=== PATIENT | female | born 1990 | race Caucasian/White ===

== ENCOUNTER 2021-09-27 02:03 | Emergency (ER) | payer OTHER, SELFPAY ==
[2021-09-27 02:05] VITALS: BP 117/76; PULSE 104; RESP 18; TEMP 36.8; O2SAT 97; BMI 29.2
--- NOTE | 2021-09-27 02:45 | ED_ITS ---
HPI - Psych General Chief Complaint: ETOH/Substance Use Stated Complaint: schizophrenia ; heroine withdrawal Time Seen by Provider: 09/27/21 02:41 Source: patient Mode of arrival: ambulatory Limitations: no limitations History of Present Illness HPI Narrative: Patient history of opiate abuse IVDA heroin and schizophrenia noncompliant to her medication has not taken her medication for last 1 and a half month hearing voices no suicidal ideation or homicidal feeling no depression Related Data Home Medications Medication Instructions Recorded Confirmed fluoxetine 40 mg capsule 1 cap PO DAILY 09/27/21 09/27/21 nicotine (polacrilex) 4 mg buccal 1 js PO Q2H PRN 09/27/21 09/27/21 lozenge quetiapine 25 mg tablet 1 tab PO TID 09/27/21 09/27/21 Previous Rx's Medication Instructions Recorded fluoxetine 40 mg capsule 40 mg PO DAILY #30 cap 09/27/21 quetiapine 25 mg tablet (Seroquel) 25 mg PO TID #90 tab 09/27/21 quetiapine 50 mg tablet (Seroquel) 50 mg PO BEDTIME #30 tab 09/27/21 Allergies Allergy/AdvReac Type Severity Reaction Status Date / Time morphine AdvReac Vomiting Verified 09/27/21 02:09 [facility] Social History Social History Use of substances other than those prescribed or required for medical reasons: Yes Substance Use Type: Heroin Advance Directives: No Patient : No Physical Exam Vital Signs: Vital Signs: Last Vital Signs Temp 98.2 F 09/27/21 02:05 Pulse 77 09/27/21 03:04 Resp 14 09/27/21 03:04 BP 109/63 09/27/21 03:04 Pulse Ox 99 09/27/21 03:04 BMI result Body Mass Index 29.2 Appearance: Alert. Oriented X3. No acute distress. Eyes: PERRLA, No Nystagmus ENT: Pharynx normal. Oral Mucosa moist Neck: Normal inspection. Neck supple. CVS: Normal heart rate and rhythm. Pulses normal. Respiratory: No respiratory distress. Equal air entry bilateral, no wheezing/rales/rhonchi Abdomen: Soft and nontender. Bowel sounds are present, no mass palpable, no CVA tenderness Skin: Skin warm and dry. Normal skin color. Normal skin turgor. Extremities: No lower extremity edema. No calf tenderness Psych: Mood stable denies any suicidal ideation auditory hallucination+ Neuro: Oriented X 3. No motor deficit. No sensory deficit.No cerebellar signs , cranial nerves II-XII intact MDM - Psych MDM Narrative Medical decision making narrative: Patient has schizophrenia and substance abuse does not want to go to detox will refill her prescription advised to follow up with detox as outpatient Medical Records Attestation: I reviewed the patient's medical records. Discharge Plan Discharge Clinical Impression: Heroin abuse, Schizophrenia Patient Disposition: Home, Self-Care Instructions: Schizophrenia (ED), Opioid Use Disorder (ED) Additional Instructions: Stop using the heroin Follow-up with detox Followup with your psychiatrist Take medication as prescribed for schizophrenia Prescriptions: New quetiapine [Seroquel] 25 mg tablet 25 mg PO TID Qty: 90 0RF quetiapine [Seroquel] 50 mg tablet 50 mg PO BEDTIME Qty: 30 0RF fluoxetine 40 mg capsule 40 mg PO DAILY Qty: 30 0RF No Action quetiapine 25 mg tablet 1 tab PO TID 0RF fluoxetine 40 mg capsule 1 cap PO DAILY 0RF nicotine (polacrilex) 4 mg lozenge 1 js PO Q2H PRN (Reason: Nicotine Cravings) 0RF
[2021-09-27] MEDS: QUEtiapine Fumarate 50 MG TABLET PO (02:57)
[2021-09-27] MEDS: LORazepam 1 MG TABLET 2 MG PO (02:57)
[2021-09-27 03:04] VITALS: BP 109/63; PULSE 77; RESP 14; O2SAT 99
--- NOTE | 2021-09-27 04:17 | PC.NURSE ---
pt is sleeping at this time. Awaiting care team.
[2021-09-27 05:48] VITALS: BP 111/50; PULSE 69; RESP 14; O2SAT 98
== END 2021-09-27 06:19 | disposition home or self-care (01) ==
PROVIDERS: Emergency Provider Internal Medicine
DX: F11.23 Opioid dependence with withdrawal (principal); F25.9 Schizoaffective disorder, unspecified; Z91.14 Patient's other noncompliance with medication regimen; Z79.899 Other long term (current) drug therapy
CPT/HCPCS: 99283; 99284

== ENCOUNTER 2021-09-28 02:59 | Emergency (ER) | payer OTHER, SELFPAY ==
[2021-09-28 03:07] VITALS: BP 109/67; PULSE 73; RESP 16; TEMP 36.8; O2SAT 97; BMI 26.5
[2021-09-28 03:41] LABS: Basophils Percent Auto 0.9 % (0-2); Eosinophils Absolute Auto 0.2 X10*3/uL (0.0-0.4); Eosinophils Percent Auto 5.2 % (0-4); Hematocrit 41.3 % (37.0-47.0); Hemoglobin 13.5 g/dl (12.0-16.0); Imm Gran Abs Auto 0.01 X10*3/uL (0.00-0.03); Imm Gran Pct Auto 0.2 % (0.0-0.4); Lymphocytes Absolute Auto 1.6 X10*3/uL (1.2-4.9); Lymphocytes Percent Auto 36.6 % (20-40); MANUAL DIFF FLAG NO; Mean Corpuscular HGB Conc 32.7 g/dl (31.0-35.0); Mean Corpuscular Hemoglobin 29.5 pg (27.0-33.0); Mean Corpuscular Volume 90.4 fL (80.0-98.0); Mean Platelet Volume 9.7 fL (9.4-12.3); Monocytes Absolute Auto 0.4 X10*3/uL (0.1-1.2); Monocytes Percent Auto 9.7 % (2-11); Neutrophils Percent Auto 47.4 % (45-73); Platelet Count 295 X10*3/uL (160-400); Red Blood Count 4.57 X10*6/uL (4.20-5.50); Red Cell Distribution Width 13.1 % (11.0-16.0); White Blood Count 4.2 X10*3/uL (4.8-10.8)
[2021-09-28 03:56] LABS: Ethanol < 10 mg/dL
[2021-09-28 03:59] LABS: Acetaminophen LAB < 1 mcg/mL (<30); Anion Gap 12 (12-20); Blood Urea Nitrogen 11 mg/dL (9-16); Calcium 9.3 mg/dL (8.4-10.2); Carbon Dioxide 27 mmol/L (22-29); Chloride 104 mmol/L (96-108); Creatinine Clr Calc Pharmacy 97.2; Estimated Glomerular Filt Rate > 60; Glucose Random 82 mg/dL (60-115); Potassium 4.3 mmol/L (3.3-5.1); Salicylate < 5.0 mg/dL (15-30); Sodium 139 mmol/L (135-145)
[2021-09-28 04:01] LABS: COVID-19 Test Negative (Negative)
--- NOTE | 2021-09-28 05:03 | ED_ITS ---
HPI - Psych General Chief Complaint: Psychiatric Symptoms Stated Complaint: Crisis Time Seen by Provider: 09/28/21 05:03 Source: patient Mode of arrival: ambulatory Limitations: no limitations History of Present Illness HPI Narrative: Patient history of schizophrenia off her medication for some time homeless coherent depressed complaining of homicidal thought but not towards any particular person after arrival she states she wanted to hurt herself but no suicidal ideation Related Data Home Medications Medication Instructions Recorded Confirmed fluoxetine 40 mg capsule 1 cap PO DAILY 09/28/21 09/28/21 quetiapine 25 mg tablet 1 tab PO TID 09/28/21 09/28/21 Allergies Allergy/AdvReac Type Severity Reaction Status Date / Time morphine AdvReac Vomiting Verified 09/27/21 02:09 Review of Systems Review of Systems: Yes all other systems are reviewed and are negative [facility] Social History Social History Substance Use Type: Heroin Advance Directives: No Patient : No Physical Exam Vital Signs: Vital Signs: Last Vital Signs Temp 98.2 F 09/28/21 03:07 Pulse 73 09/28/21 03:07 Resp 16 09/28/21 03:07 BP 109/67 09/28/21 03:07 Pulse Ox 97 09/28/21 03:07 BMI result Body Mass Index 26.5 Appearance: Alert. Oriented X3. No acute distress. Eyes: PERRLA, No Nystagmus ENT: Pharynx normal. Oral Mucosa moist Neck: Normal inspection. Neck supple. CVS: Normal heart rate and rhythm. Pulses normal. Respiratory: No respiratory distress. Equal air entry bilateral, no wheezing/rales/rhonchi Abdomen: Soft and nontender. Bowel sounds are present, Skin: Skin warm and dry. Normal skin color. Normal skin turgor. Extremities: No lower extremity edema. No calf tenderness Psych: Calm and cooperative fair judgment AH+ Neuro: Oriented X 3. No motor deficit. No sensory deficit.No cerebellar signs , cranial nerves II-XII intact MDM - Psych MDM Narrative Medical decision making narrative: Patient with schizophrenia will get crisis consult Lab Data Attestation: I reviewed the patient's lab results. Result diagrams: 09/28/21 03:36 09/28/21 03:36 Labs: Lab Results 09/28/21 09/28/21 09/28/21 Range/Units 03:36 03:36 03:36 WBC 4.2 L (4.8-10.8) X10*3/uL RBC 4.57 (4.20-5.50) X10*6/uL Hgb 13.5 (12.0-16.0) g/dl Hct 41.3 (37.0-47.0) % MCV 90.4 (80.0-98.0) fL MCH 29.5 (27.0-33.0) pg MCHC 32.7 (31.0-35.0) g/dl RDW 13.1 (11.0-16.0) % Plt Count 295 (160-400) X10*3/uL MPV 9.7 (9.4-12.3) fL Immature Gran % (Auto) 0.2 (0.0-0.4) % Neut % (Auto) 47.4 (45-73) % Lymph % (Auto) 36.6 (20-40) % [place] % (Auto) 9.7 (2-11) % Eos % (Auto) 5.2 H (0-4) % Baso % (Auto) 0.9 (0-2) % Lymph # (Auto) 1.6 (1.2-4.9) X10*3/uL [place] # (Auto) 0.4 (0.1-1.2) X10*3/uL Eos # (Auto) 0.2 (0.0-0.4) X10*3/uL Baso # (Auto) 0.0 (0.0-0.2) X10*3/uL Abs Immat Gran (auto) 0.01 (0.00-0.03) X10*3/uL Absolute Neuts (auto) 2.0 (2.0-8.3) x10*3/uL Absolute Nucleated RBC 0.000 (0.0-0.012) X10*3/uL Nucleated RBC % (auto) 0.0 (0.0-0.2) /100WBC Sodium 139 (135-145) mmol/L Potassium 4.3 (3.3-5.1) mmol/L Chloride 104 (96-108) mmol/L Carbon Dioxide 27 (22-29) mmol/L Anion Gap 12 (12-20) BUN 11 (9-16) mg/dL Creatinine 0.79 (0.5-1.4) mg/dL Estim Creat Clear Calc 97.2 Estimated GFR > 60 Random Glucose 82 (60-115) mg/dL Calcium 9.3 (8.4-10.2) mg/dL Salicylates < 5.0 L (15-30) mg/dL Acetaminophen < 1 (<30) mcg/mL Ethyl Alcohol < 10 mg/dL COVID-19 ([facility]) (Negative) COVID-19 Clin Com 09/28/21 Range/Units 03:39 WBC (4.8-10.8) X10*3/uL RBC (4.20-5.50) X10*6/uL Hgb (12.0-16.0) g/dl Hct (37.0-47.0) % MCV (80.0-98.0) fL MCH (27.0-33.0) pg MCHC (31.0-35.0) g/dl RDW (11.0-16.0) % Plt Count (160-400) X10*3/uL MPV (9.4-12.3) fL Immature Gran % (Auto) (0.0-0.4) % Neut % (Auto) (45-73) % Lymph % (Auto) (20-40) % [place] % (Auto) (2-11) % Eos % (Auto) (0-4) % Baso % (Auto) (0-2) % Lymph # (Auto) (1.2-4.9) X10*3/uL [place] # (Auto) (0.1-1.2) X10*3/uL Eos # (Auto) (0.0-0.4) X10*3/uL Baso # (Auto) (0.0-0.2) X10*3/uL Abs Immat Gran (auto) (0.00-0.03) X10*3/uL Absolute Neuts (auto) (2.0-8.3) x10*3/uL Absolute Nucleated RBC (0.0-0.012) X10*3/uL Nucleated RBC % (auto) (0.0-0.2) /100WBC Sodium (135-145) mmol/L Potassium (3.3-5.1) mmol/L Chloride (96-108) mmol/L Carbon Dioxide (22-29) mmol/L Anion Gap (12-20) BUN (9-16) mg/dL Creatinine (0.5-1.4) mg/dL Estim Creat Clear Calc Estimated GFR Random Glucose (60-115) mg/dL Calcium (8.4-10.2) mg/dL Salicylates (15-30) mg/dL Acetaminophen (<30) mcg/mL Ethyl Alcohol mg/dL COVID-19 ([facility]) Negative (Negative) COVID-19 Clin Com See Note Discharge Plan Discharge Clinical Impression: Schizophrenia Patient Disposition: Still a Patient Prescriptions: No Action quetiapine 25 mg tablet 1 tab PO TID 0RF fluoxetine 40 mg capsule 1 cap PO DAILY 0RF
--- NOTE | 2021-09-28 06:16 | PC.NURSE ---
Patient slept through the night, no distress observed/reported, behavior non concerning, [facility] referral completed/confirmed/pending ETA, med rec completed/MAR updated, VSS, will continue to monitor.
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
[2021-09-28 10:40] LABS: Appearance Urine HAZY; Color Urine DK YELLOW; Glucose Urine UA NEG (NEG); Leukocyte Esterase Urine TRACE (NEG); Nitrite Urine NEG (NEG); Specific Gravity - Urine <= 1.005 (1.005-1.025); Urine Blood 3+ (NEG); Urine Ketones NEG (NEG); Urine Protein 2+ MG/DL (NEG-TRACE)
[2021-09-28] MEDS: QUEtiapine Fumarate 25 MG TABLET PO ×3 (10:40→21:06)
[2021-09-28] MEDS: FLUoxetine HCl 20 MG CAPSULE 40 MG PO (10:40)
[2021-09-28 10:41] LABS: UPreg QC Valid YES
[2021-09-28 10:43] LABS: Urine Pregnancy NEGATIVE (NEGATIVE)
[2021-09-28 10:57] LABS: Squamous Epithelial Cell Urine 2+ /LPF
[2021-09-28 10:58] LABS: Amphetamine Screen Urine Not Detected (Not Detect); Barbiturates, Urine Not Detected (Not Detect); Benzodiazepines Screen Urine Not Detected (Not Detect); Cannabinoid Screen Urine POSITIVE (Not Detect); Cocaine Screen Urine POSITIVE (Not Detect); Fentanyl, urine POSITIVE (Not Detect); Opiate Screen Urine Not Detected (Not Detect); Phencyclidine Screen Urine Not Detected (Not Detect)
[2021-09-28 11:00] LABS: Bacteria Urine 1+ /LPF; Trichomonas Urine NOTED; WBC Urine 0-2 /HPF (0-4)
--- NOTE | 2021-09-28 15:28 | PC.NURSE ---
patient resting comfortably awaiting detox bed, took meds without difficulty
--- NOTE | 2021-09-28 15:42 | MHC.RECOVSUP ---
Recovery Support note: Patient is a 30 year old Russian speaking female who presented to [facility] due to vague SI. Patient was evaluated by CARE Team and it was determined that patient would benefit most from ATS. This machine sign writer met with patient to confirm interest in ATS. Both [facility] report female beds and patient is being considered by both facilities. This machine sign writer awaits follow up from these facilities.
[2021-09-28 17:07] VITALS: BP 99/52; PULSE 58; RESP 15; TEMP 36.9; O2SAT 98
--- NOTE | 2021-09-28 18:07 | MHC.RECOVSUP ---
Recovery Support note: Patient continues to deny HI and SI. Patient reports using half a bundle of heroin per day. Patient reports she is willing to go anywhere for treatment.
--- NOTE | 2021-09-28 19:19 | MHC.RECOVSUP ---
Reason for consult: ATS bed follow-up o Current location: [place] [id number] o Identified substance use concern: OPIOID <del>-</del> <del>Overdose</del> <del>-</del> <del>Withdrawal</del> - Seeking ATS (detox) - Support ? Intervention: o ATS bed search started/completed/in process: bed search was started by Jose prior to my arrival. Referral was made to [facility]. <del>o</del> <del>MAT</del> <del>started</del> <del>or</del> <del>to</del> <del>be</del> <del>started</del> <del>o</del> <del>Community</del> <del>resources</del> <del>provided</del> <del>o</del> <del>Harm</del> <del>reduction</del> <del>discussion</del> ? Plan: <del>o</del> <del>Referral</del> <del>to</del> <del>[facility]</del> o Bed search in progress to: [facility] <del>o</del> <del>Follow</del> <del>up</del> <del>tomorrow</del> <del>o</del> <del>Patient</del> <del>awaiting</del> <del>crisis</del> <del>evaluation</del> <del>o</del> <del>Patient</del> <del>to</del> <del>follow</del> <del>up</del> <del>with</del> <del>[facility]</del> <del>after</del> <del>discharge</del> ? Additional information: pt was started on a bed search to a detox facility by Jose. pt is willing to go to [facility]. I called to follow up on the referral and and it is being looked at by the nurse. I was told to call back in 30 minutes.
--- NOTE | 2021-09-28 20:31 | MHC.RECOVSUP ---
Reason for consult: Detox bed follow-up ? Additional information:I was able to call back [facility] and they asked if pt was going to be sent up with he medication and I followed up with the care team and was told yes. T the moment there are no beds available but was told that we needed to call back in an hour to make sure the bed is available. pt is scheduled for a bed but there aren't any available at the moment. I was able to pass all this information to the care team who will assist me with scheduling her a lyft.
[2021-09-29 04:05] VITALS: BP 113/62; PULSE 61; RESP 16; TEMP 36.7; O2SAT 99
--- NOTE | 2021-09-29 06:28 | PC.NURSE ---
Patient slept through the night, no distress observed/reported, patient is detox bed search, care team and recovery auditor are coordinating the bed search, medication compliant, behavior appropriate and non concerning at this time, will continue to monitor.
--- NOTE | 2021-09-29 07:11 | PC.NURSE ---
patient appears to remain asleep at present respirations are even and unlabored patient appears in no distress
--- NOTE | 2021-09-29 09:36 | MHC.RECOVSUP ---
Addendum entered by Jose Donato [facility] 09/29/21 11:31: Patient is not declining detox. Plan for discharge with resources. Original Note: Recovery Support note: Patient declined from [facility] on [facility]/29 due to concerns regarding patient's SI/HI statement. [facility] have beds however do not accept patient's insurance. [facility] does not have any available beds at this time. If a bed does not open up by lunch, patient will discharge. Discussed case with patient's RN.
[2021-09-29] MEDS: QUEtiapine Fumarate 25 MG TABLET PO (10:45)
[2021-09-29] MEDS: FLUoxetine HCl 20 MG CAPSULE 40 MG PO (10:46)
== END 2021-09-29 11:45 | disposition home or self-care (01) ==
PROVIDERS: Emergency Provider Internal Medicine
DX: F20.9 Schizophrenia, unspecified (principal); Z59.02 Unsheltered homelessness; Z20.822 Contact with and (suspected) exposure to COVID-19
CPT/HCPCS: 36415; 80048; 80143; 80179; 80307; 81001; 81025; 82077; 85025; 87635; 99284

== ENCOUNTER 2021-09-29 14:36 | Emergency (ER) | payer OTHER, SELFPAY ==
[2021-09-29 15:27] VITALS: BP 125/51; PULSE 83; RESP 18; TEMP 37.1; O2SAT 97; BMI 29.2
[2021-09-29 15:51] LABS: Appearance Urine CLEAR; Color Urine YELLOW; Glucose Urine UA NEG (NEG); Leukocyte Esterase Urine NEG (NEG); Nitrite Urine NEG (NEG); UACC Culture Trigger NO; Urine Blood 3+ (NEG); Urine Ketones NEG (NEG); Urine Protein NEG (NEG-TRACE)
[2021-09-29 15:59] LABS: Mucus Urine TRACE /LPF; Squamous Epithelial Cell Urine TRACE /LPF; WBC Urine 0 /HPF (0-4)
[2021-09-29 16:00] LABS: COVID-19 Test Negative (Negative)
[2021-09-29 16:06] LABS: Amphetamine Screen Urine Not Detected (Not Detect); Barbiturates, Urine Not Detected (Not Detect); Benzodiazepines Screen Urine Not Detected (Not Detect); Cannabinoid Screen Urine POSITIVE (Not Detect); Cocaine Screen Urine POSITIVE (Not Detect); Fentanyl, urine POSITIVE (Not Detect); Opiate Screen Urine Not Detected (Not Detect); Phencyclidine Screen Urine Not Detected (Not Detect)
--- NOTE | 2021-09-29 19:44 | MHC.RECOVSUP ---
Reason for consult: ATS o Current location: [facility] o Identified substance use concern: OPIOID, Alcohol, Cocaine <del>-</del> <del>Overdose</del> <del>-</del> <del>Withdrawal</del> - Seeking ATS (detox) - Support ? Intervention: o ATS bed search started/completed/in process: [facility] <del>o</del> <del>MAT</del> <del>started</del> <del>or</del> <del>to</del> <del>be</del> <del>started</del> <del>o</del> <del>Community</del> <del>resources</del> <del>provided</del> o Harm reduction discussion ? Plan: <del>o</del> <del>Referral</del> <del>to</del> <del>[facility]</del> <del>o</del> <del>Bed</del> <del>search</del> <del>in</del> <del>progress</del> <del>to</del> o Follow up tomorrow <del>o</del> <del>Patient</del> <del>awaiting</del> <del>crisis</del> <del>evaluation</del> <del>o</del> <del>Patient</del> <del>to</del> <del>follow</del> <del>up</del> <del>with</del> <del>[facility]</del> <del>after</del> <del>discharge</del> ? Additional information: Kristan is a 31 year old female who is currently interested in going to detox. Pt was here yesterday and Jose was able to get all paperwork and referral to [facility] where there were beds available. I followed up with [facility] and when I did there weren't any beds available but they did say that they would hold a bed for her but to continue calling throughout the night. Pt also stated last night that she was leaving to [place] on Friday morning which was scheduled with her brother. This evening, when she spoke with Jose, she said that she is not going to [place] and has decided to go and finish detox. I spoke with Jose and I will follow up with JOSE DAVID and the referral that was submitted for her yesterday.
--- NOTE | 2021-09-29 20:00 | ED.PSYCH ---
HPI - Psych General Chief Complaint: ETOH/Substance Use Stated Complaint: detox Source: patient and EMS Mode of arrival: EMS Limitations: no limitations History of Present Illness HPI Narrative: 31-year-old female presents for EtOH, heroin and cocaine abuse. Asking for detox. MD complaint: feels depressed and substance abuse Onset (ago): unknown Duration: constant History of same: Yes Relieving factors: none Exacerbating factors: alcohol and drug use Context: recent alcohol abuse and recent drug abuse Associated psychiatric symptoms: depression Associated symptoms: denies other symptoms Treatments prior to arrival: none Related Data Home Medications Medication Instructions Recorded Confirmed fluoxetine 40 mg capsule 1 cap PO DAILY 09/28/21 09/29/21 quetiapine 25 mg tablet 1 tab PO TID 09/28/21 09/29/21 Allergies Allergy/AdvReac Type Severity Reaction Status Date / Time morphine AdvReac Vomiting Verified 09/29/21 15:27 Review of Systems Review of Systems: Constitutional: No Fever, No Chills ENT/Mouth: No sore throat, No Rhinorrhea Eyes: No Eye Pain, No Swelling, No Redness Cardiovascular: No Chest Pain, No SOB Respiratory: No Cough, No Sputum Gastrointestinal: No Nausea, No Vomiting, No Diarrhea, No abdominal Pain Genitourinary: No Dysuria, No Hematuria Musculoskeletal: No joint pain, No Myalgias, No Joint Swelling Skin: No Skin Lesions, No rash Neuro: No Weakness, No Numbness, No Loss of Consciousness, No Dizziness, No Headache Psych: Positive substance abuse, No Anxiety, No Depression, No SI/HI/AH/VH Heme/Lymph: No Bruising, No Bleeding,No Lymphadenopathy Endocrine: No Polyuria, No Polydipsia Yes all other systems are reviewed and are negative [facility] Past Medical History Attestation statement: The following information was validated with the patient. Source: old records reviewed Social History Social History Substance Use Type: Heroin Advance Directives: No Advance Directives Information Provided: No Patient : No Physical Exam Vital Signs: Vital Signs: Last Vital Signs Temp 98.7 F 09/29/21 15:27 Pulse 83 09/29/21 15:27 Resp 18 09/29/21 15:27 BP 125/51 L 09/29/21 15:27 Pulse Ox 97 05/07/22 15:27 BMI result Body Mass Index 29.2 Appearance: Alert. Oriented X3. No acute distress. Eyes: Pupils equal, round and reactive to light. ENT: Pharynx normal. Neck: Normal inspection. Neck supple. CVS: Normal heart rate and rhythm. Pulses normal. Respiratory: No respiratory distress. Breath sounds normal. Abdomen: Soft and nontender. Skin: Skin warm and dry. Normal skin color. Normal skin turgor. Extremities: No lower extremity edema. Gait well-balanced well coordinated. Neuro: No motor deficit. No sensory deficit. Cranial nerves 2-12 intact. Course Course Course Narrative: 31-year-old female presents for the for alcohol, cocaine and heroin intoxication. Patient is requesting detox. She presented with similar circumstances on 09/27, and 09/28 was discharged earlier this morning. Patient is not suicidal or homicidal. States to be homeless and is looking for detox. field hockey and lacrosse coach currently searching for a bed. 23:53 physician observation started at this time. Detox in the morning. MDM - Psych Differential Diagnosis Differential diagnosis: Likely substance abuse and alcohol intoxication Medical Records Attestation: I reviewed the patient's medical records. Lab Data Attestation: I reviewed the patient's lab results. Labs: Lab Results 09/29/21 09/29/21 09/29/21 Range/Units 15:38 15:40 15:40 Urine Color YELLOW Urine Appearance CLEAR Urine pH 6.0 (5.0-8.0) Ur Specific [place] 1.010 (1.005-1.025) Urine Protein NEG (NEG-TRACE) MG/DL Urine Glucose (UA) NEG (NEG) MG/DL Urine Ketones NEG (NEG) MG/DL Urine Blood 3+ H (NEG) Urine Nitrite NEG (NEG) Ur Leukocyte Esterase NEG (NEG) Urine RBC 1-4 (0) /HPF Urine WBC 0 (0-4) /HPF Ur Squamous Epith Cells TRACE /LPF Urine Bacteria NONE /LPF Urine Mucus TRACE /LPF Urine Opiates Screen Not Detected (Not Detect) Urine Fentanyl Screen POSITIVE H (Not Detect) Ur Barbiturates Screen Not Detected (Not Detect) Ur Phencyclidine Scrn Not Detected (Not Detect) Ur Amphetamines Screen Not Detected (Not Detect) U Benzodiazepines Scrn Not Detected (Not Detect) Urine Cocaine Screen POSITIVE H (Not Detect) U Marijuana (THC) Screen POSITIVE H (Not Detect) COVID-19 ([facility]) Negative (Negative) COVID-19 Clin Com See Note Discharge Plan Discharge Clinical Impression: Alcoholic intoxication, Opiate use, Polysubstance abuse Patient Disposition: Home, Self-Care Instructions: Polysubstance Abuse (ED), Abuse of Alcohol (DC), Opioid Use Disorder (ED) Additional Instructions: Please follow-up with detox. Thank you for choosing this emergency department for evaluation. Please follow-up with primary care physician as needed. Return to the emergency department for any new, concerning, or worsening symptoms. Prescriptions: No Action quetiapine 25 mg tablet 1 tab PO TID 0RF fluoxetine 40 mg capsule 1 cap PO DAILY 0RF
--- NOTE | 2021-09-29 20:53 | MHC.RECOVSUP ---
Reason for consult: UPDATE <del>o</del> <del>Current</del> <del>location:</del> <del>o</del> <del>Identified</del> <del>substance</del> <del>use</del> <del>concern:</del> <del>-</del> <del>Overdose</del> <del>-</del> <del>Withdrawal</del> <del>-</del> <del>Seeking</del> <del>ATS</del> <del>(detox)</del> <del>-</del> <del>Support</del> <del>?</del> <del>Intervention:</del> <del>o</del> <del>ATS</del> <del>bed</del> <del>search</del> <del>started/completed/in</del> <del>process</del> <del>o</del> <del>MAT</del> <del>started</del> <del>or</del> <del>to</del> <del>be</del> <del>started</del> <del>o</del> <del>Community</del> <del>resources</del> <del>provided</del> <del>o</del> <del>Harm</del> <del>reduction</del> <del>discussion</del> <del>?</del> <del>Plan:</del> <del>o</del> <del>Referral</del> <del>to</del> <del>[facility]del> <del>o</del> <del>Bed</del> <del>search</del> <del>in</del> <del>progress</del> <del>to</del> <del>o</del> <del>Follow</del> <del>up</del> <del>tomorrow</del> <del>o</del> <del>Patient</del> <del>awaiting</del> <del>crisis</del> <del>evaluation</del> <del>o</del> <del>Patient</del> <del>to</del> <del>follow</del> <del>up</del> <del>with</del> <del>[facility]</del> <del>after</del> <del>discharge</del> ? Additional information: I was able to call [facility] and follow up with the referral that was submitted yesterday for the pt. I was told that there aren't any beds available. I asked [facility] if there might be any tonight for a female and they said that it's unlikely there will be a bed available this evening. I was able to make the care team aware of this information.
--- NOTE | 2021-09-30 06:31 | PC.NURSE ---
Patient slept through the night, no distress observed/reported, VSS, behavior appropriate and non concerning, med rec completed/pending provider's approval, volleyball coach coordinating detox bed search, will continue to monitor
[2021-09-30 06:36] VITALS: BP 107/66; PULSE 68; RESP 16; TEMP 36.7; O2SAT 100
--- NOTE | 2021-09-30 07:06 | PC.NURSE ---
patient appears to remain asleep at present respirations are even and unlabored patient appears in no distress
--- NOTE | 2021-09-30 08:08 | PC.NURSE ---
patient appears to remain asleep at present respirations are even and unlabored patient appears in no distress.
--- NOTE | 2021-09-30 08:54 | MHC.RECOVSUP ---
Recovery Support note: Patient is a 31 year old Croatian speaking female who presented to [facility] on 09/29 seeking detox. Patient discharged earlier in the day on 09/29 as no beds were available for detox and patient was in withdrawal. Patient reports using half a bundle a day and last used on 09/29. Patient continues to express interest in going to ATS. Patient denies HI/HI/AH/VH. Patient reports she has not taken her prescribed medication in a month. This fiction and nonfiction prose writer will assist patient in referring to ATS facilities.
== END 2021-09-30 09:50 | disposition other institution (70) ==
PROVIDERS: Emergency Provider Emergency Medicine Emergency Medical Services
DX: F10.129 Alcohol abuse with intoxication, unspecified (principal); Y90.9 Presence of alcohol in blood, level not specified; F11.10 Opioid abuse, uncomplicated; F14.10 Cocaine abuse, uncomplicated; Z20.822 Contact with and (suspected) exposure to COVID-19
CPT/HCPCS: 80307; 81001; 87635; 99284; 99285

== ENCOUNTER 2022-03-06 11:43 | Observation (INO) | payer OTHER, SELFPAY ==
[2022-03-06] VITALS (9 sets, daily range): BP systolic 84–132; BP diastolic 27–76; PULSE 69–114; RESP 15–22; TEMP 36.7–37; O2SAT 96–100; BMI 32.1
--- NOTE | ~2022-03-06 | XR_ITS ---
EXAMINATION: XR CHEST CLINICAL INFORMATION: Cough. COMPARISON: None TECHNIQUE: Frontal view of the chest was obtained. FINDINGS: No significant abnormality is noted involving the heart, lungs, mediastinum, bony thorax or soft tissues. XR/XR chest 1V IMPRESSION: No acute cardiopulmonary process.
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
--- NOTE | 2022-03-06 12:19 | ECG_ITS ---
Test Reason : DYSPENA Blood Pressure : / mmHG Vent. Rate : 088 BPM Atrial Rate : 088 BPM P-R Int : 136 ms QRS Dur : 082 ms QT Int : 276 ms P-R-T Axes : 061 028 060 degrees QTc Int : 333 ms Poor data quality Normal sinus rhythm Nonspecific T wave abnormality Abnormal ECG No previous ECGs available Referred By: Leti Bueno Electronically Signed By:DRAKE GARDINER MD
[2022-03-06] MEDS: Albuterol Sulfate 2.5 MG/0.5 ML VIAL.NEB 10 MG INHALE (12:35)
[2022-03-06 12:37] LABS: MANUAL DIFF FLAG NO
[2022-03-06 12:39] LABS: Basophils Absolute Auto 0.1 X10*3/uL (0.0-0.2); Basophils Percent Auto 0.7 % (0-2); Eosinophils Absolute Auto 0.1 X10*3/uL (0.0-0.4); Eosinophils Percent Auto 0.9 % (0-4); Hematocrit 36.5 % (37.0-47.0); Hemoglobin 12.6 g/dl (12.0-16.0); Imm Gran Abs Auto 0.03 X10*3/uL (0.00-0.03); Imm Gran Pct Auto 0.4 % (0.0-0.4); Lymphocytes Absolute Auto 1.7 X10*3/uL (1.2-4.9); Lymphocytes Percent Auto 22.1 % (20-40); Mean Corpuscular HGB Conc 34.5 g/dl (31.0-35.0); Mean Corpuscular Hemoglobin 29.4 pg (27.0-33.0); Mean Corpuscular Volume 85.1 fL (80.0-98.0); Mean Platelet Volume 10.3 fL (9.4-12.3); Monocytes Absolute Auto 0.6 X10*3/uL (0.1-1.2); Monocytes Percent Auto 7.2 % (2-11); Neutrophils Absolute Auto 5.2 x10*3/uL (2.0-8.3); Neutrophils Percent Auto 68.7 % (45-73); Platelet Count 260 X10*3/uL (160-400); Red Blood Count 4.29 X10*6/uL (4.20-5.50); Red Cell Distribution Width 13.3 % (11.0-16.0); White Blood Count 7.6 X10*3/uL (4.8-10.8)
[2022-03-06 12:53] LABS: COVID-19 Test Negative (Negative); IDNOW Serial# 16C4AD1C
[2022-03-06 12:59] LABS: Troponin-I High Sensitivity < 3.5 ng/L (<3.5-17.0)
[2022-03-06 13:05] LABS: Alanine Aminotransferase 35 U/L (0-31); Albumin Level 5.1 g/dL (3.5-5.0); Alkaline Phosphatase 59 U/L (39-117); Anion Gap 19 (12-20); Aspartate Amino Transferase 33 U/L (5-31); Bilirubin Direct 0.3 mg/dL (0.0-0.5); Bilirubin Total 0.6 mg/dL (0.0-1.0); Blood Urea Nitrogen 11 mg/dL (9-16); Calcium 9.4 mg/dL (8.4-10.2); Carbon Dioxide 22 mmol/L (22-29); Chloride 103 mmol/L (96-108); Creatinine Clr Calc Pharmacy 93.9; Estimated Glomerular Filt Rate > 60; Glucose Random 89 mg/dL (60-115); Potassium 2.9 mmol/L (3.3-5.1); Sodium 141 mmol/L (135-145); Total Protein 8.3 g/dL (6.5-8.0)
[2022-03-06 13:07] LABS: HCG Quantitative < 2 mIU/mL
[2022-03-06] MEDS: Magnesium Sulfate/H2O 2 GM/50 ML PIGGYBACK IV (13:19)
[2022-03-06] MEDS: metroNIDAZOLE 500 MG TABLET 2000 MG PO (13:22)
[2022-03-06] MEDS: Post Exposure Medication Kit 1 KIT PO (13:33)
[2022-03-06] MEDS: cefTRIAXone sodium 1 GM in 0.9 % Sodium Chloride 50 ML IV (13:34)
[2022-03-06] MEDS: Potassium Chloride Packet 20 MEQ PACKET 40 MEQ PO (14:08)
[2022-03-06] MEDS: methylPREDNISolone Sod Succ 125 MG/2 ML VIAL IVPUSH (14:08)
[2022-03-06] MEDS: Potassium Chloride/H20 10 MEQ/100 ML PIGGYBACK 100 MEQ IV ×3 (14:08→15:26)
--- NOTE | 2022-03-06 14:16 | PC.NURSE ---
Pt V/S are stable, Pt has IVF and k+ running by the provider order. Pt meds were administer by order. pt is on the telemetry and it shows sinus Tachy. will continue to monitor.
[2022-03-06 14:35] LABS: Amphetamine Screen Urine Not Detected (Not Detect); Barbiturates, Urine Not Detected (Not Detect); Benzodiazepines Screen Urine Not Detected (Not Detect); Cannabinoid Screen Urine POSITIVE (Not Detect); Cocaine Screen Urine POSITIVE (Not Detect); Fentanyl, urine POSITIVE (Not Detect); Opiate Screen Urine POSITIVE (Not Detect); Phencyclidine Screen Urine Not Detected (Not Detect)
[2022-03-06] MEDS: ondansetron HCL 4 MG/2 ML VIAL IVPUSH (14:37)
[2022-03-06] MEDS: Famotidine/PF 20 MG/2 ML VIAL IVPUSH (14:37)
[2022-03-06] MEDS: Benzonatate 100 MG CAPSULE PO (15:21)
--- NOTE | 2022-03-06 15:24 | PC.NURSE ---
Pt k+ second bag with IVF by provider order. will continue to monitor.
[2022-03-06] MEDS: Buprenorphine/Naloxone 12/3 mg FILM 1 FILM SUBLINGUAL (15:52)
--- NOTE | 2022-03-06 15:57 | PC.NURSE ---
Pt meds were administer by provider order, pt v/s are stable. will continue to monitor.
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
--- NOTE | 2022-03-06 17:02 | MHC.RECOVSUP ---
? Reason for consult Recovery Support o Current location: ED04 o Identified substance use concern: Heroin - Overdose - Withdrawal - Seeking ATS (detox) - Support ? Intervention: o ATS bed search started/completed/in process o MAT started in the ED o Community resources provided o Harm reduction discussion ? Plan: o Bed search in progress to o Follow up tomorrow o Patient awaiting crisis evaluation o Patient to follow up with [facility] after discharge ? Additional information: Patient stated that she WANTS to go to a detox.. But stated that she doesn't want to go to any in [place] or [place].. I called every detox on my list and thee wasn't any beds at the moment.. [facility] Doesn't take patient insurances, Kushal did not knot picker cloth the phone.. Spoke with Doctor and the care team and we are holding her till tomorrow.
--- NOTE | 2022-03-06 19:25 | HO.ADDICTPRO ---
Subjective Subjective Date of Service: 03/06/22 Reason For Visit: dyspnea Interim History: Patient seen briefly to assess for appropriate MOUD Previously on Suboxone until 3-4 days ago has been using crack cocaine for the last couple days and used one bag of heroin/fenatanyl this morning prior to presenting in ED. Appearing anxious. Reports chills, body aches, generalized malaise. Seeking ATS admission. Would like to be restarted on suboxone. Review of Systems Constitutional: Reports as per HPI Mental Status Exam Mental Status Exam Patient Appearance: Well Grooomed and Appropriate Patient Orientation: Person, Place, Time and Situation Level of Consciousness: Awake and Appropriate Patient Behavior: Appropriate and Cooperative Mood Description: Anxious Affect Description: Anxious Diagnostics Vital Signs (24Hr): Vital Signs - 24 hr 03/06/22 11:52 03/06/22 12:01 03/06/22 12:01 Temperature 98.2 F 98.3 F Pulse Rate 71 95 Respiratory Rate 16 16 16 Blood Pressure 121/76 121/76 Pulse Oximetry 96 96 Oxygen Delivery Method Room Air Room Air 03/06/22 12:28 03/06/22 12:34 03/06/22 14:15 Temperature 98.6 F 98.2 F Pulse Rate 69 80 108 H Respiratory Rate 22 H 18 20 Blood Pressure 84/27 L 132/76 Pulse Oximetry 97 96 Oxygen Delivery Method Room Air Room Air 03/06/22 14:50 03/06/22 15:53 Temperature 98.1 F 98.6 F Pulse Rate 111 H 114 H Respiratory Rate 15 18 Blood Pressure 120/53 L 120/53 L Pulse Oximetry 96 96 Oxygen Delivery Method Room Air Room Air BMI result Body Mass Index 32.1 Labs Results: 03/06/22 12:31 03/06/22 12:31 Labs: Laboratory Results - last 48 hr 03/06/22 03/06/22 03/06/22 12:31 12:31 12:31 WBC 7.6 RBC 4.29 Hgb 12.6 Hct 36.5 L MCV 85.1 MCH 29.4 MCHC 34.5 RDW 13.3 Plt Count 260 MPV 10.3 Immature Gran % (Auto) 0.4 Neut % (Auto) 68.7 Lymph % (Auto) 22.1 [place] % (Auto) 7.2 Eos % (Auto) 0.9 Baso % (Auto) 0.7 Lymph # (Auto) 1.7 [place] # (Auto) 0.6 Eos # (Auto) 0.1 Baso # (Auto) 0.1 Abs Immat Gran (auto) 0.03 Absolute Neuts (auto) 5.2 Absolute Nucleated RBC 0.000 Nucleated RBC % (auto) 0.0 Sodium 141 Potassium 2.9 L D Chloride 103 Carbon Dioxide 22 Anion Gap 19 BUN 11 Creatinine 0.79 Estim Creat Clear Calc 93.9 Estimated GFR > 60 Random Glucose 89 Calcium 9.4 Magnesium 2.0 Total Bilirubin 0.6 Direct Bilirubin 0.3 AST 33 H ALT 35 H Alkaline Phosphatase 59 Troponin I High Sens Total Protein 8.3 H Albumin 5.1 H Beta HCG, Quant < 2 Urine Opiates Screen Urine Fentanyl Screen Ur Barbiturates Screen Ur Phencyclidine Scrn Ur Amphetamines Screen U Benzodiazepines Scrn Urine Cocaine Screen U Marijuana (THC) Screen COVID-19 ([facility]) Negative COVID-19 [employer] Com See Note 03/06/22 03/06/22 12:31 14:06 WBC RBC Hgb Hct MCV MCH MCHC RDW Plt Count MPV Immature Gran % (Auto) Neut % (Auto) Lymph % (Auto) [place] % (Auto) Eos % (Auto) Baso % (Auto) Lymph # (Auto) [place] # (Auto) Eos # (Auto) Baso # (Auto) Abs Immat Gran (auto) Absolute Neuts (auto) Absolute Nucleated RBC Nucleated RBC % (auto) Sodium Potassium Chloride Carbon Dioxide Anion Gap BUN Creatinine Estim Creat Clear Calc Estimated GFR Random Glucose Calcium Magnesium Total Bilirubin Direct Bilirubin AST ALT Alkaline Phosphatase Troponin I High Sens < 3.5 Total Protein Albumin Beta HCG, Quant Urine Opiates Screen POSITIVE H Urine Fentanyl Screen POSITIVE H Ur Barbiturates Screen Not Detected Ur Phencyclidine Scrn Not Detected Ur Amphetamines Screen Not Detected U Benzodiazepines Scrn Not Detected Urine Cocaine Screen POSITIVE H U Marijuana (THC) Screen POSITIVE H COVID-19 ([facility]) COVID-19 Clin Com Imaging Radiology Impressions: ITS Impressions Chest X-Ray 03/06/22 13:01 IMPRESSION: No acute cardiopulmonary process. Medications Medications Current Medications Albuterol Sulfate (Albuterol Sulfate (0.083%) 2.5 Mg/3 Ml Vial.Neb) 2.5 mg INHALE Q3H PRN PRN Reason: Wheezing Buprenorphine/Naloxone (Buprenorphine/Naloxone 12/3 Mg Film) 1 film SUBLINGUAL DAILY ERMA Doxycycline Hyclate (Doxycycline Hyclate 100 Mg Tablet) 100 mg PO BID ERMA Last Admin: 03/06/22 13:26 Dose: 100 mg Quetiapine Fumarate (Quetiapine Fumarate 25 Mg Tablet) 25 mg PO BID PRN PRN Reason: anxiety/restlessness Allergies Allergies Allergy/AdvReac Type Severity Reaction Status Date / Time morphine AdvReac Vomiting Verified 09/29/21 15:27 Assessment & Plan Assessment & Plan (1) Opioid use disorder: Status: Acute Code(s): F11.90 - Opioid use, unspecified, uncomplicated Assessment and Plan: suboxone 12mg now suboxone 12mg QD (starting in AM) seroquel 25mg BID PRN (prescribed this outpatient) I spent __25____ minutes with the patient and/or on the patient floor today, greater than?50% of which was spent counseling/coordinating care.
--- NOTE | 2022-03-06 22:29 | PC.NURSE ---
Pt v/s are stable, pt has no pain and meds were administered as order. Pt has post exposure starter pack, Raltegavir is one pill in the morning and one in the evening, and Truvada is one pill in the morning.
[2022-03-07] VITALS (12 sets, daily range): BP systolic 96–117; BP diastolic 51–75; PULSE 50–100; RESP 14–20; TEMP 36–36.9; O2SAT 94–100
[2022-03-07] MEDS: Buprenorphine/Naloxone 12/3 mg FILM 1 FILM SUBLINGUAL (07:59)
[2022-03-07] MEDS: Albuterol Sulfate (0.083%) 2.5 MG/3 ML VIAL.NEB INHALE (08:06)
[2022-03-07] MEDS: guaiFEN/Codeine SF 200/20/10ML 10 ML LIQUID 5 ML PO (09:59)
[2022-03-07] MEDS: Albuterol Sulfate 2.5 MG, Albuterol Sulfate (0.083%) 2.5 MG 5 MG INHALE (11:05)
[2022-03-07 11:56] LABS: COVID-19 Test Negative (Negative); IDNOW Serial# 16C4AD1C; Influenza A Negative (Negative); Influenza B2 Negative (Negative)
--- NOTE | 2022-03-07 12:00 | PC.NURSE ---
Addendum entered by Olivia Owens 03/07/22 12:15: DR CUENCA AWARE OF PTS STATUS Original Note: PT CONTINUES TO HAVE COUGH AND WHEEZING SHOWING SIGNS OF WITHDRAWAL. WAS MEDICATED THIS MORNING
[2022-03-07] MEDS: chlordiazePOXIDE HCl 25 MG CAPSULE PO (12:49)
[2022-03-07] MEDS: predniSONE 10 MG TABLET 50 MG PO (12:49)
--- NOTE | 2022-03-07 12:58 | PC.NURSE ---
patient a/ox4 . valarierla . heart rate regular at 96 . wheezes noted in upper lobes , patient reports improvement after last treatment received from RT . Lower lobes airway clearance noted . skin pink warm and dry . abdomen soft not tender . positive bowel sounds throughout .patient medicated as ordered . patient is aware of plan of care .
--- NOTE | 2022-03-07 15:32 | PHA.MEDREC ---
Pharmacy Consult ? Medication Reconciliation Pharmacy has completed the medication reconciliation.
[2022-03-07] MEDS: PHENobarbitaL sodium 130 MG/ML IM ONCE 180 MG IM (15:36)
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
--- OUTSIDE RECORDS SUMMARY | 2022-03-07 15:50 | XMS_ITS | Continuity of Care Document ---
:1990 Author Organization [facility] Address [address] [place] [address]- Care Team Providers Name Role Phone Not on Staff, PCP Primary Care Physician Unavailable Encounter [facility] [place] Date(s): 10/27/20 - 11/26/[address] [address]- Allergies, Adverse Reactions, Alerts Substance Reaction Severity Status morphine Nausea and vomiting Active Medications albuterol CFC free 90 mcg/inh inhalation aerosol 2, puffs, Inhalation, Every 4 hours, PRN, # 1 each, Refills 0, Tot. Refills 0, Maintenance, 11/29/1913:20:13 EDT, Aerosol, Print Requisition Start Date: 11/29/18 Status: Ordered Social History Social History Type Response Smoking Status Current every day smoker; Ty pe: Cigarettes; Other: 1ppd; entered on: 12/12/16 Sex
--- OUTSIDE RECORDS SUMMARY | 2022-03-07 15:50 | XMS_ITS | Continuity of Care Document ---
:1990 Author Organization [facility] Address [address] [place] [address]- Care Team Providers Name Role Phone Not on Staff, PCP Primary Care Physician Unavailable [place] [facility] 05/13[place]21 - 05/14/21 [facility] [address] [place] [id number]- Encounter Diagnosis Shortness of breath (Final) - 05/14/21 Discharge Disposition: A-D/C Home Attending Physician: Brendon KEARNEY, Viridiana Smith Admitting Physician: Brendon KEARNEY, Viridiana Smith Referring Physician: Not on Staff, Referring MD Allergies, Adverse Reactions, Alerts Substance Reaction Severity Status morphine Nausea and vomiting Active Medications albuterol CFC free 90 mcg/inh inhalation aerosol 2, puffs, Inhalation, Every 4 hours, PRN, # 1 each, Refills 0, Tot. Refills 0, Maintenance, 11/29/1913:20:13 EDT, Aerosol, Print Requisition Start Date: 11/29/18 Status: Ordered Vital Signs Most recent to oldest 1 2 3 [Reference Range]: Oxygen Saturation [94-100 100 % 100 % 100 % %] (05/14/21 8:45 AM) (05/14/21 12:50 AM) (05/13/21 7:39 PM) Pulse Rate [55-90 bpm] 77 bpm 76 bpm 72 bpm (05/14/21 8:45 AM) (05/14/21 12:50 AM) (05/13/21 7:39 PM) Blood Pressure 101/59 mm Hg 100/54 mm Hg 113/61 mm Hg [90-138/55-84 mm Hg] (05/14/21 8:45 AM) (05/14/21 12:50 AM) ( 7:39 PM) Respiratory Rate [16-30 20 br/min 16 br/min 16 br/mi n br/min] (05/14/21 8:45 AM) (05/14/21 12:50 AM) (05/13/21 7:39 PM) Temperature [96.8-100.4 98.1 DegF 97.5 DegF 97.4 Deg F DegF] (05/14/21 8:45 AM) (05/14/21 12:50 AM) (05/13/21 7:39 PM) Liters per Minute 2 L/min (05/13/21 5:29 PM) Mode of Delivery (Oxygen) Room air Room air Room a ir (05/14/21 8:45 AM) (05/14/21 12:50 AM) (05/13/21 7:39 PM) Blood pressure sites Arm, right Arm, left Arm, right (05/14/21 8:45 AM) (05/14/21 12:50 AM) (05/13/21 7:39 PM) Temperature Route Oral Oral Oral (05/14/21 8:45 AM) (05/14/21 12:50 AM) (05/13/21 7:39 PM) Social History Social History Type Response Smoking Status Current every day smoker; Ty pe: Cigarettes; Other: 1ppd; entered on: 12/12/16 Sex
--- OUTSIDE RECORDS SUMMARY | 2022-03-07 15:50 | XMS_ITS ---
:1990 Author Care Team Providers Name Role Phone Patient_import Primary Care Provider Unavailable Allergies None recorded. Medications Name Status Start Date Stop Date ? ? fluoxetine 40 mg capsule Active 11/08/2020 Not selvin ilable Take 1 capsule every day by oral route. Vivitrol 380 mg intramuscular suspension,extended release Active ? Not available Inject 4 mL every 4 weeks by intramuscular route. Problems Name Status Onset Date Source ? Anxiety Active 11/08/2020 History Alcohol Dependence Active 11/08/2020 History Posttraumatic Stress Disorder Active 11/08/2020 Hi story Procedures None recorded. Results Lab Results None recorded. Past Encounters 11/08/2020 MAYURI Cox: [address] [place] [phone], Ph. Social History None recorded. Vaccine List None recorded. Plan of Care Reminders Provider Appointments None recorded. ? ? Lab None recorded. ? ? Referral None recorded. ? ? Procedures None recorded. ? ? Surgeries None recorded. ? ? Imaging None recorded. ? ? Vitals None recorded.
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
[2022-03-07 16:21] LABS: Anion Gap 14 (12-20); Blood Urea Nitrogen 12 mg/dL (9-16); Carbon Dioxide 24 mmol/L (22-29); Chloride 106 mmol/L (96-108); Creatinine Clr Calc Pharmacy 98.9; Estimated Glomerular Filt Rate > 60; Glucose Random 114 mg/dL (60-115); Potassium 3.2 mmol/L (3.3-5.1); Sodium 141 mmol/L (135-145)
[2022-03-07] MEDS: Enoxaparin Sodium 40 MG/0.4 ML SYRINGE SUBCUT (16:25)
[2022-03-07] MEDS: 0.9 % Sodium Chloride Flush 3 ML SYRINGE IVFLUSH ×2 (16:26→23:42)
[2022-03-07] MEDS: PHENobarbitaL sodium 130 MG/ML VIAL IM Q3Hx2 136 MG IM ×2 (18:00→20:14)
[2022-03-07] MEDS: Potassium Chloride Packet 20 MEQ PACKET 40 MEQ PO (20:13)
[2022-03-07] MEDS: QUEtiapine Fumarate 50 MG TABLET PO (20:13)
[2022-03-07] MEDS: Albuterol/Iprat 2.5/0.5MG 3 ML AMPUL.NEB INHALE (20:17)
[2022-03-07] MEDS: Prazosin HCL 5 MG CAPSULE 10 MG PO (21:02)
[2022-03-08 03:33] VITALS: BP 100/53; PULSE 82; RESP 18; TEMP 36.1; O2SAT 98
[2022-03-08 07:30] VITALS: BP 103/59; PULSE 73; RESP 18; TEMP 36.2; O2SAT 96
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
[2022-03-08] MEDS: Albuterol/Iprat 2.5/0.5MG 3 ML AMPUL.NEB INHALE ×2 (07:34→11:16)
[2022-03-08 07:36] VITALS: PULSE 90; RESP 18; O2SAT 99
[2022-03-08 07:37] LABS: Anion Gap 12 (12-20); Blood Urea Nitrogen 13 mg/dL (9-16); Calcium 8.4 mg/dL (8.4-10.2); Carbon Dioxide 22 mmol/L (22-29); Chloride 110 mmol/L (96-108); Creatinine Clr Calc Pharmacy 132.5; Estimated Glomerular Filt Rate > 60; Glucose Random 73 mg/dL (60-115); Potassium 3.8 mmol/L (3.3-5.1); Sodium 140 mmol/L (135-145)
[2022-03-08] MEDS: Buprenorphine/Naloxone 12/3 mg FILM 1 FILM SUBLINGUAL (08:41)
[2022-03-08] MEDS: PHENobarbitaL 30 MG TABLET PO (08:42)
[2022-03-08] MEDS: ARIPiprazole 2 MG TABLET PO (08:42)
[2022-03-08] MEDS: FLUoxetine HCl 20 MG CAPSULE 40 MG PO (08:42)
[2022-03-08] MEDS: 0.9 % Sodium Chloride Flush 3 ML SYRINGE IVFLUSH (10:07)
[2022-03-08] MEDS: QUEtiapine Fumarate 25 MG TABLET PO (10:15)
[2022-03-08 11:17] VITALS: PULSE 69; RESP 18; O2SAT 99
[2022-03-08 11:27] VITALS: BP 109/52; PULSE 75; RESP 18; TEMP 36.3; O2SAT 97
--- NOTE | 2022-03-08 11:43 | MHC.RECOVSUP ---
Recovery Support note: Patient is a 31 year old Nauruan speaking female who presented to [facility] ED seeking detox and was medically admitted. Patient is cleared for discharge however requesting referrals for substance use treatment. [facility]S/[facility] bedsearch has been exhausted. [facility] has a female ATS bed and is reviewing patient for admission. Patient aware. 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
[2022-03-08] MEDS: methylPREDNISolone Sod Succ 40 MG/ML VIAL IVPUSH (14:04)
--- NOTE | 2022-03-08 15:34 | MHC.RECOVSUP ---
Recovery Support note: Patient accepted to [facility] and transported via [employer]. Prescriptions faxed to pharmacy.
== END 2022-03-08 14:45 | disposition home or self-care (01) ==
LOC: HO.ED 03-07 14:31 → HO.EDOVER 03-07 15:48 → HO.S3 03-07 16:17
PROVIDERS: Student in an Organized Health Care Education/Training Program; Admitting Provider Physician Assistant; Emergency Provider Emergency Medicine; Visit Provider Internal Medicine
DX: J45.41 Moderate persistent asthma with (acute) exacerbation (principal); F19.10 Other psychoactive substance abuse, uncomplicated; E87.6 Hypokalemia; Z20.822 Contact with and (suspected) exposure to COVID-19; B19.20 Unspecified viral hepatitis C without hepatic coma; F11.20 Opioid dependence, uncomplicated; F17.200 Nicotine dependence, unspecified, uncomplicated; F41.9 Anxiety disorder, unspecified; F32.A Depression, unspecified; F20.9 Schizophrenia, unspecified; F43.10 Post-traumatic stress disorder, unspecified; F10.10 Alcohol abuse, uncomplicated; Y90.9 Presence of alcohol in blood, level not specified; Z72.89 Other problems related to lifestyle; Z65.8 Other specified problems related to psychosocial circumstances; Z79.899 Other long term (current) drug therapy
CPT/HCPCS: 36415; 71045; 80048; 80076; 80307; 83735; 84484; 84702; 85025; 87502; 87635; 93005; 94640; 96365; 96366; 96367; 96372; 96375; 99218; 99285; J0696; J1650; J2405; J2560; J2920; J2930; J3475

== ENCOUNTER 2022-07-27 08:59 | Emergency (ER) | payer OTHER, SELFPAY ==
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
[2022-07-27 09:12] VITALS: BP 129/85; BP 140/78; PULSE 79; PULSE 82; RESP 16; TEMP 36.8; O2SAT 100; O2SAT 99; BMI 24.6
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
[2022-07-27] MEDS: Acetaminophen 325 MG TABLET 650 MG PO (10:02)
--- NOTE | 2022-07-27 10:07 | PC.NURSE ---
Pt alert and oriented, resp even and unlabored. Resting quietly in the room, offering no complaints
[2022-07-27 10:26] LABS: Appearance Urine Turbid; Color Urine Yellow; Glucose Urine UA Negative (Negative); Leukocyte Esterase Urine Moderate (2+) (Negative); Nitrite Urine Negative (Negative); Specific Gravity - Urine 1.015 (1.005-1.025); UMIC TRIGGER UACC YES; Urine Blood Negative (Negative); Urine Ketones Negative (Negative); Urine Protein 30 (1+) mg/dL (Neg-Trace)
[2022-07-27 10:39] LABS: Bacteria Urine 4+ (None Seen); Hyaline Casts Urine 0-2 /LPF (0-2); Squamous Epithelial Cell Urine >20 /HPF (0-2); UACC Culture Trigger YES; WBC Urine >50 /HPF (0-5)
[2022-07-27 10:46] LABS: UPreg QC Valid YES
[2022-07-27 10:48] LABS: Urine Pregnancy NEGATIVE (NEGATIVE)
== END 2022-07-27 11:21 | disposition home or self-care (01) ==
PROVIDERS: Emergency Provider Emergency Medicine
DX: S40.012A Contusion of left shoulder, initial encounter (principal); S70.02XA Contusion of left hip, initial encounter; Y08.89XA Assault by other specified means, initial encounter; N39.0 Urinary tract infection, site not specified; F19.10 Other psychoactive substance abuse, uncomplicated; F11.20 Opioid dependence, uncomplicated; F17.210 Nicotine dependence, cigarettes, uncomplicated; Y93.9 Activity, unspecified; Y92.414 Local residential or business street as the place of occurrence of the external cause; Y99.9 Unspecified external cause status; Z79.899 Other long term (current) drug therapy
CPT/HCPCS: 73030; 73502; 81001; 81025; 87086; 99283; 99284

== ENCOUNTER 2022-07-29 20:12 | Emergency (ER) | payer OTHER, SELFPAY ==
[2022-07-29 20:30] VITALS: BP 129/74; PULSE 64; RESP 16; TEMP 37; O2SAT 98; BMI 21.6
--- NOTE | 2022-07-29 20:30 | ED.PSYCH ---
HPI - Psych General Chief Complaint: General Medical <MAYURI Alves - Last Filed: 07/29/22 20:32> Stated Complaint: Seeking detox <MAYURI Alves - Last Filed: 07/29/22 20:32> Time Seen by Provider: 07/30/22 00:35 <MAYURI Alves - Last Filed: 07/29/22 20:32> Source: patient <Nomra Lacey MD - Last Filed: 07/30/22 02:21> Mode of arrival: ambulatory <Norma Lacey MD - Last Filed: 07/30/22 02:21> History of Present Illness HPI Narrative: 31-year-old female who presents with request for detox from poly substances and also has a longstanding psychiatric history of bipolar, depression, anxiety. She otherwise has no constitutional complaints such as fever, chills, shortness of breath, chest pain/palpitations or GI or symptoms. She states that she last stated at [facility] in [place] approximately 2-3 months ago. <Norma Lacey MD - Last Filed: 07/30/22 02:21> Related Data Home Medications: Home Medications Medication Instructions Recorded Confirmed aripiprazole 2 mg tablet 1 tab PO DAILY 03/07/22 03/07/22 buprenorphine 12 mg-naloxone 3 mg 1 strip sublingual DAILY 03/07/22 03/07/22 sublingual film (Suboxone) prazosin 5 mg capsule 2 cap PO DAILY 03/07/22 03/07/22 Previous Rx's Medication Instructions Recorded fluoxetine 40 mg capsule 40 mg PO DAILY #30 caps 09/30/21 albuterol sulfate 90 mcg/actuation 2 inh inhalation Q6-8H PRN 03/08/22 aerosol inhaler shortness of breath or wheezing #18 grams prednisone 20 mg tablet 40 mg PO DAILY #8 tabs 03/08/22 quetiapine 25 mg tablet (Seroquel) 25 mg PO DAILY #10 tabs 03/08/22 quetiapine 50 mg tablet 1 tab PO BEDTIME #10 tabs 03/08/22 nitrofurantoin 100 mg PO BID #14 caps 07/27/22 monohydrate/macrocrystals 100 mg capsule (Macrobid) <MAYURI Alves - Last Filed: 03/06/23 20:32> Allergies/Adverse Reactions: Allergies Allergy/AdvReac Type Severity Reaction Status Date / Time morphine AdvReac Vomiting Verified 09/29/21 15:27 <MAYURI Alves - Last Filed: 07/29/22 20:32> Review of Systems Review of Systems: Pertinent positives and negatives as stated in HPI <Norma Lacey MD - Last Filed: 07/30/22 02:21> PMFSH Past Medical History Source: nursing notes reviewed <Norma Lacey MD - Last Filed: 07/30/22 02:21> Medical History: Medical History Active substance abuse Anxiety and depression Asthma Polysubstance abuse PTSD (post-traumatic stress disorder) Schizophrenia <MAYURI Alves - Last Filed: 07/29/22 20:32> Family History Family History: Family History Mother Asthma Father Asthma Diabetes Paternal Grandfather Asthma Diabetes <MAYURI Alves - Last Filed: 07/29/22 20:32> Social History Social History: Social History Alcohol intake: current Alcohol intake frequency: other Patient Tobacco Use Status: Current everyday Tobacco user Tobacco use type: Cigarette Cigarette Packs Per Day: 0.5 Cigarettes Per Day: 10.0 Smoked in Last 30 Days: Yes Use of substances other than those prescribed or required for medical reasons: Yes Substance Use Type: Crack/Cocaine, Heroin and Methamphetamine Substance Use Frequency: Daily Last Used Substance: Hours (ago) Advance Directives: Yes Advance Directives on File: Yes Advance Directives Date on File: 03/11/22 Patient : No service: No Current occupational status: other <MAYURI Alves - Last Filed: 07/29/22 20:32> Physical Exam Vital Signs: Vital Signs: Last Vital Signs Temp 98.1 F 07/30/22 09:52 Pulse 75 07/30/22 09:52 Resp 16 07/30/22 09:52 BP 106/46 L 07/30/22 09:52 Pulse Ox 98 07/30/22 09:52 O2 Del Method 07/30/22 09:52 BMI result Body Mass Index 21.6 <MAYURI Alves - Last Filed: 07/29/22 20:32> Vital Signs: Last Vital Signs Temp 98.1 F 07/30/22 09:52 Pulse 75 07/30/22 09:52 Resp 16 07/30/22 09:52 BP 106/46 L 07/30/22 09:52 Pulse Ox 98 07/30/22 09:52 O2 Del Method 07/30/22 09:52 BMI result Body Mass Index 21.6 VITAL SIGNS: Reviewed. GENERAL: Well developed, well nourished, in no acute distress. HEAD: Normocephalic/atraumatic EYES: PERRLA, EOMI LUNGS: Normal breath sounds. No adventitious sounds or accessory muscle use. SpO2<100> CARDIOVASCULAR: Regular rate and rhythm without noted murmurs ABDOMEN: Soft, non-tender, non-distended with bowel sounds. MUSCULOSKELETAL: No tenderness, deformities, or effusions noted on gross inspection. EXTREMITIES: No cyanosis, clubbing or edema. SKIN: Inspection of the skin reveals no rashes NEUROLOGIC: Alert and oriented x 4. Strength and sensation to light touch were grossly intact x 4, cranial nerves 2-12 are grossly intact.. <Norma Lacey MD - Last Filed: 07/30/22 02:21> Course Course Course Narrative: RME - 31 yo female with history of polysubstance abuse including meth, heroin, crack cocaine presenting for detox. Last used all substances yesterday. Injects and snorts. Feels like she is starting to withdraw. VSS in triage. Plan: medical clearance labs and evaluation by learning coach <MAYURI Alves - Last Filed: 07/29/22 20:32> Medical Decision Making Medical Decision Making MDM Narrative: This is a 31-year-old female was polysubstance use, she is otherwise medically cleared after review of all investigations. Patient was also placed on a COWS to assess for any withdrawal symptoms. Otherwise she is pending consultation with a care team for placement. Patient placed in physician observation because the patient needed more time for evaluation for detox. At the time observation was started the patient's vital signs were stable, patient is alert and oriented, neuro: Nonfocal, CV RRR, lungs clear <Norma Lacey MD - Last Filed: 07/30/22 02:21> Differential Diagnosis Please see the discussion above <Norma Lacey MD - Last Filed: 07/30/22 02:21> Lab Data Please see the discussion above <Norma Lacey MD - Last Filed: 07/30/22 02:21> Result Diagrams: 07/29/22 21:11 07/29/22 21:05 <MAYURI Alves - Last Filed: 07/29/22 20:32> Labs: Lab Results 07/29/22 07/29/22 07/29/22 Range/Units 21:05 21:05 21:05 WBC (4.8-10.8) X10*3/uL RBC (4.20-5.50) X10*6/uL Hgb (12.0-16.0) g/dl Hct (37.0-47.0) % MCV (80.0-98.0) fL MCH (27.0-33.0) pg MCHC (31.0-35.0) g/dl RDW (11.0-16.0) % Plt Count (160-400) X10*3/uL MPV (9.4-12.3) fL Immature Gran % (Auto) (0.0-0.4) % Neut % (Auto) (45-73) % Lymph % (Auto) (20-40) % [place] % (Auto) (2-11) % Eos % (Auto) (0-4) % Baso % (Auto) (0-2) % Lymph # (Auto) (1.2-4.9) X10*3/uL [place] # (Auto) (0.1-1.2) X10*3/uL Eos # (Auto) (0.0-0.4) X10*3/uL Baso # (Auto) (0.0-0.2) X10*3/uL Abs Immat Gran (auto) (0.00-0.03) X10*3/uL Absolute Neuts (auto) (2.0-8.3) x10*3/uL Absolute Nucleated RBC (0.0-0.012) X10*3/uL Nucleated RBC % (auto) (0.0-0.2) /100WBC Sodium 139 (135-145) mmol/L Potassium 3.9 (3.3-5.1) mmol/L Chloride 105 (96-108) mmol/L Carbon Dioxide 25 (22-29) mmol/L Anion Gap 13 (12-20) BUN 8 L (9-16) mg/dL Creatinine 0.77 (0.5-1.4) mg/dL Estim Creat Clear Calc 96.1 Estimated GFR > 60 Random Glucose 85 (60-115) mg/dL Calcium 8.9 (8.4-10.2) mg/dL Magnesium 1.9 (1.6-2.6) mg/dL Total Bilirubin 0.5 (0.0-1.0) mg/dL Direct Bilirubin 0.2 (0.0-0.5) mg/dL AST 92 H (5-31) U/L ALT 197 H (0-31) U/L Alkaline Phosphatase 71 (39-117) U/L Total Protein 6.6 (6.5-8.0) g/dL Albumin 3.8 (3.5-5.0) g/dL Urine Color Dark Yellow Urine Appearance Clear Urine pH 5.5 (5.0-9.0) Ur Specific [place] >= 1.030 H (1.005-1.025) Urine Protein 100 (2+) H (Neg-Trace) mg/dL Urine Glucose (UA) Negative (Negative) mg/dL Urine Ketones Trace (Negative) mg/dL Urine Blood Large (3+) H (Negative) Urine Nitrite Negative (Negative) Ur Leukocyte Esterase Negative (Negative) Urine RBC >20 H (0-2) /HPF Urine WBC 0-5 (0-5) /HPF Ur Squamous Epith Cells 6-10 (0-2) /HPF Calcium Oxalate Crystal Present Urine Bacteria None Seen (None Seen) Hyaline Casts 6-10 (0-2) /LPF Urine Test (NEGATIVE) Urine Opiates Screen (Not Detect) Urine Fentanyl Screen (Not Detect) Ur Barbiturates Screen (Not Detect) Ur Phencyclidine Scrn (Not Detect) Ur Amphetamines Screen (Not Detect) U Benzodiazepines Scrn (Not Detect) Urine Cocaine Screen (Not Detect) U Marijuana (THC) Screen (Not Detect) Ethyl Alcohol mg/dL COVID-19 (DONNA) Negative (Negative) COVID-19 Clin Com See Note 07/29/22 07/29/22 07/29/22 Range/Units 21:05 21:05 21:11 WBC 7.1 (4.8-10.8) X10*3/uL RBC 4.19 L (4.20-5.50) X10*6/uL Hgb 12.9 (12.0-16.0) g/dl Hct 38.6 (37.0-47.0) % MCV 92.1 (80.0-98.0) fL MCH 30.8 (27.0-33.0) pg MCHC 33.4 (31.0-35.0) g/dl RDW 12.8 (11.0-16.0) % Plt Count 286 (160-400) X10*3/uL MPV 9.5 (9.4-12.3) fL Immature Gran % (Auto) 0.4 (0.0-0.4) % Neut % (Auto) 64.5 (45-73) % Lymph % (Auto) 24.8 (20-40) % [place] % (Auto) 6.7 (2-11) % Eos % (Auto) 2.8 (0-4) % Baso % (Auto) 0.8 (0-2) % Lymph # (Auto) 1.8 (1.2-4.9) X10*3/uL [place] # (Auto) 0.5 (0.1-1.2) X10*3/uL Eos # (Auto) 0.2 (0.0-0.4) X10*3/uL Baso # (Auto) 0.1 (0.0-0.2) X10*3/uL Abs Immat Gran (auto) 0.03 (0.00-0.03) X10*3/uL Absolute Neuts (auto) 4.6 (2.0-8.3) x10*3/uL Absolute Nucleated RBC 0.000 (0.0-0.012) X10*3/uL Nucleated RBC % (auto) 0.0 (0.0-0.2) /100WBC Sodium (135-145) mmol/L Potassium (3.3-5.1) mmol/L Chloride (96-108) mmol/L Carbon Dioxide (22-29) mmol/L Anion Gap (12-20) BUN (9-16) mg/dL Creatinine (0.5-1.4) mg/dL Estim Creat Clear Calc Estimated GFR Random Glucose (60-115) mg/dL Calcium (8.4-10.2) mg/dL Magnesium (1.6-2.6) mg/dL Total Bilirubin (0.0-1.0) mg/dL Direct Bilirubin (0.0-0.5) mg/dL AST (5-31) U/L ALT (0-31) U/L Alkaline Phosphatase (39-117) U/L Total Protein (6.5-8.0) g/dL Albumin (3.5-5.0) g/dL Urine Color Urine Appearance Urine pH (5.0-9.0) Ur Specific [place] (1.005-1.025) Urine Protein (Neg-Trace) mg/dL Urine Glucose (UA) (Negative) mg/dL Urine Ketones (Negative) mg/dL Urine Blood (Negative) Urine Nitrite (Negative) Ur Leukocyte Esterase (Negative) Urine RBC (0-2) /HPF Urine WBC (0-5) /HPF Ur Squamous Epith Cells (0-2) /HPF Calcium Oxalate Crystal Urine Bacteria (None Seen) Hyaline Casts (0-2) /LPF Urine Test NEGATIVE (NEGATIVE) Urine Opiates Screen POSITIVE H (Not Detect) Urine Fentanyl Screen POSITIVE H (Not Detect) Ur Barbiturates Screen Not Detected (Not Detect) Ur Phencyclidine Scrn Not Detected (Not Detect) Ur Amphetamines Screen POSITIVE H (Not Detect) U Benzodiazepines Scrn Not Detected (Not Detect) Urine Cocaine Screen POSITIVE H (Not Detect) U Marijuana (THC) Screen POSITIVE H (Not Detect) Ethyl Alcohol mg/dL COVID-19 (DONNA) (Negative) COVID-19 Clin Com 07/29/22 Range/Units 21:11 WBC (4.8-10.8) X10*3/uL RBC (4.20-5.50) X10*6/uL Hgb (12.0-16.0) g/dl Hct (37.0-47.0) % MCV (80.0-98.0) fL MCH (27.0-33.0) pg MCHC (31.0-35.0) g/dl RDW (11.0-16.0) % Plt Count (160-400) X10*3/uL MPV (9.4-12.3) fL Immature Gran % (Auto) (0.0-0.4) % Neut % (Auto) (45-73) % Lymph % (Auto) (20-40) % [place] % (Auto) (2-11) % Eos % (Auto) (0-4) % Baso % (Auto) (0-2) % Lymph # (Auto) (1.2-4.9) X10*3/uL [place] # (Auto) (0.1-1.2) X10*3/uL Eos # (Auto) (0.0-0.4) X10*3/uL Baso # (Auto) (0.0-0.2) X10*3/uL Abs Immat Gran (auto) (0.00-0.03) X10*3/uL Absolute Neuts (auto) (2.0-8.3) x10*3/uL Absolute Nucleated RBC (0.0-0.012) X10*3/uL Nucleated RBC % (auto) (0.0-0.2) /100WBC Sodium (135-145) mmol/L Potassium (3.3-5.1) mmol/L Chloride (96-108) mmol/L Carbon Dioxide (22-29) mmol/L Anion Gap (12-20) BUN (9-16) mg/dL Creatinine (0.5-1.4) mg/dL Estim Creat Clear Calc Estimated GFR Random Glucose (60-115) mg/dL Calcium (8.4-10.2) mg/dL Magnesium (1.6-2.6) mg/dL Total Bilirubin (0.0-1.0) mg/dL Direct Bilirubin (0.0-0.5) mg/dL AST (5-31) U/L ALT (0-31) U/L Alkaline Phosphatase (39-117) U/L Total Protein (6.5-8.0) g/dL Albumin (3.5-5.0) g/dL Urine Color Urine Appearance Urine pH (5.0-9.0) Ur Specific [place] (1.005-1.025) Urine Protein (Neg-Trace) mg/dL Urine Glucose (UA) (Negative) mg/dL Urine Ketones (Negative) mg/dL Urine Blood (Negative) Urine Nitrite (Negative) Ur Leukocyte Esterase (Negative) Urine RBC (0-2) /HPF Urine WBC (0-5) /HPF Ur Squamous Epith Cells (0-2) /HPF Calcium Oxalate Crystal Urine Bacteria (None Seen) Hyaline Casts (0-2) /LPF Urine Test (NEGATIVE) Urine Opiates Screen (Not Detect) Urine Fentanyl Screen (Not Detect) Ur Barbiturates Screen (Not Detect) Ur Phencyclidine Scrn (Not Detect) Ur Amphetamines Screen (Not Detect) U Benzodiazepines Scrn (Not Detect) Urine Cocaine Screen (Not Detect) U Marijuana (THC) Screen (Not Detect) Ethyl Alcohol < 10 mg/dL COVID-19 (DONNA) (Negative) COVID-19 Clin Com <MAYURI Alves - Last Filed: 07/29/22 20:32> Lab Results 07/29/22 07/29/22 07/29/22 Range/Units 21:05 21:05 21:05 WBC (4.8-10.8) X10*3/uL RBC (4.20-5.50) X10*6/uL Hgb (12.0-16.0) g/dl Hct (37.0-47.0) % MCV (80.0-98.0) fL MCH (27.0-33.0) pg MCHC (31.0-35.0) g/dl RDW (11.0-16.0) % Plt Count (160-400) X10*3/uL MPV (9.4-12.3) fL Immature Gran % (Auto) (0.0-0.4) % Neut % (Auto) (45-73) % Lymph % (Auto) (20-40) % [place] % (Auto) (2-11) % Eos % (Auto) (0-4) % Baso % (Auto) (0-2) % Lymph # (Auto) (1.2-4.9) X10*3/uL [place] # (Auto) (0.1-1.2) X10*3/uL Eos # (Auto) (0.0-0.4) X10*3/uL Baso # (Auto) (0.0-0.2) X10*3/uL Abs Immat Gran (auto) (0.00-0.03) X10*3/uL Absolute Neuts (auto) (2.0-8.3) x10*3/uL Absolute Nucleated RBC (0.0-0.012) X10*3/uL Nucleated RBC % (auto) (0.0-0.2) /100WBC Sodium 139 (135-145) mmol/L Potassium 3.9 (3.3-5.1) mmol/L Chloride 105 (96-108) mmol/L Carbon Dioxide 25 (22-29) mmol/L Anion Gap 13 (12-20) BUN 8 L (9-16) mg/dL Creatinine 0.77 (0.5-1.4) mg/dL Estim Creat Clear Calc 96.1 Estimated GFR > 60 Random Glucose 85 (60-115) mg/dL Calcium 8.9 (8.4-10.2) mg/dL Magnesium 1.9 (1.6-2.6) mg/dL Total Bilirubin 0.5 (0.0-1.0) mg/dL Direct Bilirubin 0.2 (0.0-0.5) mg/dL AST 92 H (5-31) U/L ALT 197 H (0-31) U/L Alkaline Phosphatase 71 (39-117) U/L Total Protein 6.6 (6.5-8.0) g/dL Albumin 3.8 (3.5-5.0) g/dL Urine Color Dark Yellow Urine Appearance Clear Urine pH 5.5 (5.0-9.0) Ur Specific [place] >= 1.030 H (1.005-1.025) Urine Protein 100 (2+) H (Neg-Trace) mg/dL Urine Glucose (UA) Negative (Negative) mg/dL Urine Ketones Trace (Negative) mg/dL Urine Blood Large (3+) H (Negative) Urine Nitrite Negative (Negative) Ur Leukocyte Esterase Negative (Negative) Urine RBC >20 H (0-2) /HPF Urine WBC 0-5 (0-5) /HPF Ur Squamous Epith Cells 6-10 (0-2) /HPF Calcium Oxalate Crystal Present Urine Bacteria None Seen (None Seen) Hyaline Casts 6-10 (0-2) /LPF Urine Test (NEGATIVE) Urine Opiates Screen (Not Detect) Urine Fentanyl Screen (Not Detect) Ur Barbiturates Screen (Not Detect) Ur Phencyclidine Scrn (Not Detect) Ur Amphetamines Screen (Not Detect) U Benzodiazepines Scrn (Not Detect) Urine Cocaine Screen (Not Detect) U Marijuana (THC) Screen (Not Detect) Ethyl Alcohol mg/dL COVID-19 (DONNA) Negative (Negative) COVID-19 Clin Com See Note 07/29/22 07/29/22 07/29/22 Range/Units 21:05 21:05 21:11 WBC 7.1 (4.8-10.8) X10*3/uL RBC 4.19 L (4.20-5.50) X10*6/uL Hgb 12.9 (12.0-16.0) g/dl Hct 38.6 (37.0-47.0) % MCV 92.1 (80.0-98.0) fL MCH 30.8 (27.0-33.0) pg MCHC 33.4 (31.0-35.0) g/dl RDW 12.8 (11.0-16.0) % Plt Count 286 (160-400) X10*3/uL MPV 9.5 (9.4-12.3) fL Immature Gran % (Auto) 0.4 (0.0-0.4) % Neut % (Auto) 64.5 (45-73) % Lymph % (Auto) 24.8 (20-40) % [place] % (Auto) 6.7 (2-11) % Eos % (Auto) 2.8 (0-4) % Baso % (Auto) 0.8 (0-2) % Lymph # (Auto) 1.8 (1.2-4.9) X10*3/uL [place] # (Auto) 0.5 (0.1-1.2) X10*3/uL Eos # (Auto) 0.2 (0.0-0.4) X10*3/uL Baso # (Auto) 0.1 (0.0-0.2) X10*3/uL Abs Immat Gran (auto) 0.03 (0.00-0.03) X10*3/uL Absolute Neuts (auto) 4.6 (2.0-8.3) x10*3/uL Absolute Nucleated RBC 0.000 (0.0-0.012) X10*3/uL Nucleated RBC % (auto) 0.0 (0.0-0.2) /100WBC Sodium (135-145) mmol/L Potassium (3.3-5.1) mmol/L Chloride (96-108) mmol/L Carbon Dioxide (22-29) mmol/L Anion Gap (12-20) BUN (9-16) mg/dL Creatinine (0.5-1.4) mg/dL Estim Creat Clear Calc Estimated GFR Random Glucose (60-115) mg/dL Calcium (8.4-10.2) mg/dL Magnesium (1.6-2.6) mg/dL Total Bilirubin (0.0-1.0) mg/dL Direct Bilirubin (0.0-0.5) mg/dL AST (5-31) U/L ALT (0-31) U/L Alkaline Phosphatase (39-117) U/L Total Protein (6.5-8.0) g/dL Albumin (3.5-5.0) g/dL Urine Color Urine Appearance Urine pH (5.0-9.0) Ur Specific [place] (1.005-1.025) Urine Protein (Neg-Trace) mg/dL Urine Glucose (UA) (Negative) mg/dL Urine Ketones (Negative) mg/dL Urine Blood (Negative) Urine Nitrite (Negative) Ur Leukocyte Esterase (Negative) Urine RBC (0-2) /HPF Urine WBC (0-5) /HPF Ur Squamous Epith Cells (0-2) /HPF Calcium Oxalate Crystal Urine Bacteria (None Seen) Hyaline Casts (0-2) /LPF Urine Test NEGATIVE (NEGATIVE) Urine Opiates Screen POSITIVE H (Not Detect) Urine Fentanyl Screen POSITIVE H (Not Detect) Ur Barbiturates Screen Not Detected (Not Detect) Ur Phencyclidine Scrn Not Detected (Not Detect) Ur Amphetamines Screen POSITIVE H (Not Detect) U Benzodiazepines Scrn Not Detected (Not Detect) Urine Cocaine Screen POSITIVE H (Not Detect) U Marijuana (THC) Screen POSITIVE H (Not Detect) Ethyl Alcohol mg/dL COVID-19 (DONNA) (Negative) COVID-19 Clin Com 07/29/22 Range/Units 21:11 WBC (4.8-10.8) X10*3/uL RBC (4.20-5.50) X10*6/uL Hgb (12.0-16.0) g/dl Hct (37.0-47.0) % MCV (80.0-98.0) fL MCH (27.0-33.0) pg MCHC (31.0-35.0) g/dl RDW (11.0-16.0) % Plt Count (160-400) X10*3/uL MPV (9.4-12.3) fL Immature Gran % (Auto) (0.0-0.4) % Neut % (Auto) (45-73) % Lymph % (Auto) (20-40) % [place] % (Auto) (2-11) % Eos % (Auto) (0-4) % Baso % (Auto) (0-2) % Lymph # (Auto) (1.2-4.9) X10*3/uL [place] # (Auto) (0.1-1.2) X10*3/uL Eos # (Auto) (0.0-0.4) X10*3/uL Baso # (Auto) (0.0-0.2) X10*3/uL Abs Immat Gran (auto) (0.00-0.03) X10*3/uL Absolute Neuts (auto) (2.0-8.3) x10*3/uL Absolute Nucleated RBC (0.0-0.012) X10*3/uL Nucleated RBC % (auto) (0.0-0.2) /100WBC Sodium (135-145) mmol/L Potassium (3.3-5.1) mmol/L Chloride (96-108) mmol/L Carbon Dioxide (22-29) mmol/L Anion Gap (12-20) BUN (9-16) mg/dL Creatinine (0.5-1.4) mg/dL Estim Creat Clear Calc Estimated GFR Random Glucose (60-115) mg/dL Calcium (8.4-10.2) mg/dL Magnesium (1.6-2.6) mg/dL Total Bilirubin (0.0-1.0) mg/dL Direct Bilirubin (0.0-0.5) mg/dL AST (5-31) U/L ALT (0-31) U/L Alkaline Phosphatase (39-117) U/L Total Protein (6.5-8.0) g/dL Albumin (3.5-5.0) g/dL Urine Color Urine Appearance Urine pH (5.0-9.0) Ur Specific [place] (1.005-1.025) Urine Protein (Neg-Trace) mg/dL Urine Glucose (UA) (Negative) mg/dL Urine Ketones (Negative) mg/dL Urine Blood (Negative) Urine Nitrite (Negative) Ur Leukocyte Esterase (Negative) Urine RBC (0-2) /HPF Urine WBC (0-5) /HPF Ur Squamous Epith Cells (0-2) /HPF Calcium Oxalate Crystal Urine Bacteria (None Seen) Hyaline Casts (0-2) /LPF Urine Test (NEGATIVE) Urine Opiates Screen (Not Detect) Urine Fentanyl Screen (Not Detect) Ur Barbiturates Screen (Not Detect) Ur Phencyclidine Scrn (Not Detect) Ur Amphetamines Screen (Not Detect) U Benzodiazepines Scrn (Not Detect) Urine Cocaine Screen (Not Detect) U Marijuana (THC) Screen (Not Detect) Ethyl Alcohol < 10 mg/dL COVID-19 (DONNA) (Negative) COVID-19 Clin Com <Norma Lacey MD - Last Filed: 07/30/22 02:21> External Record Review External record reviewed: Outpatient record and Prior outpatient labs <Norma Lacey MD - Last Filed: 07/30/22 02:21> Discharge Plan Discharge Clinical Impression: Substance use disorder <MAYURI Alves - Last Filed: 07/29/22 20:32> Patient Disposition: Still a Patient <MAYURI Alves - Last Filed: 07/29/22 20:32> Prescriptions: No Action prazosin 5 mg capsule 2 cap PO DAILY aripiprazole 2 mg tablet 1 tab PO DAILY buprenorphine-naloxone [Suboxone] 12-3 mg film 1 strip sublingual DAILY prednisone 20 mg tablet 40 mg PO DAILY Qty: 8 0RF quetiapine [Seroquel] 25 mg tablet 25 mg PO DAILY Qty: 10 0RF quetiapine 50 mg tablet 1 tab PO BEDTIME Qty: 10 0RF albuterol sulfate 90 mcg/actuation HFA aerosol inhaler 2 inh inhalation Q6-8H PRN (Reason: shortness of breath or wheezing) Qty: 18 0RF fluoxetine 40 mg capsule 40 mg PO DAILY Qty: 30 0RF nitrofurantoin monohyd/m-cryst [Macrobid] 100 mg capsule 100 mg PO BID Qty: 14 0RF Rx Instructions: must administer with a meal/food <MAYURI Alves - Last Filed: 07/29/22 20:32>
[2022-07-29 21:12] LABS: Appearance Urine Clear; Color Urine Dark Yellow; Glucose Urine UA Negative (Negative); Leukocyte Esterase Urine Negative (Negative); Nitrite Urine Negative (Negative); PH 5.5 (5.0-9.0); Specific Gravity - Urine >= 1.030 (1.005-1.025); UMIC TRIGGER UACC YES; Urine Blood Large (3+) (Negative); Urine Ketones Trace mg/dL (Negative); Urine Protein 100 (2+) mg/dL (Neg-Trace)
[2022-07-29 21:15] LABS: MANUAL DIFF FLAG NO
[2022-07-29 21:19] LABS: Basophils Absolute Auto 0.1 X10*3/uL (0.0-0.2); Basophils Percent Auto 0.8 % (0-2); Eosinophils Absolute Auto 0.2 X10*3/uL (0.0-0.4); Eosinophils Percent Auto 2.8 % (0-4); Hematocrit 38.6 % (37.0-47.0); Hemoglobin 12.9 g/dl (12.0-16.0); Imm Gran Abs Auto 0.03 X10*3/uL (0.00-0.03); Imm Gran Pct Auto 0.4 % (0.0-0.4); Lymphocytes Absolute Auto 1.8 X10*3/uL (1.2-4.9); Lymphocytes Percent Auto 24.8 % (20-40); Mean Corpuscular HGB Conc 33.4 g/dl (31.0-35.0); Mean Corpuscular Hemoglobin 30.8 pg (27.0-33.0); Mean Corpuscular Volume 92.1 fL (80.0-98.0); Mean Platelet Volume 9.5 fL (9.4-12.3); Monocytes Absolute Auto 0.5 X10*3/uL (0.1-1.2); Monocytes Percent Auto 6.7 % (2-11); Neutrophils Absolute Auto 4.6 x10*3/uL (2.0-8.3); Neutrophils Percent Auto 64.5 % (45-73); Platelet Count 286 X10*3/uL (160-400); Red Blood Count 4.19 X10*6/uL (4.20-5.50); Red Cell Distribution Width 12.8 % (11.0-16.0); White Blood Count 7.1 X10*3/uL (4.8-10.8)
[2022-07-29 21:23] LABS: Amphetamine Screen Urine POSITIVE (Not Detect); Barbiturates, Urine Not Detected (Not Detect); Benzodiazepines Screen Urine Not Detected (Not Detect); COVID-19 Test Negative (Negative); Cannabinoid Screen Urine POSITIVE (Not Detect); Cocaine Screen Urine POSITIVE (Not Detect); Fentanyl, urine POSITIVE (Not Detect); IDNOW Serial# 16C4AD1C; Opiate Screen Urine POSITIVE (Not Detect); Phencyclidine Screen Urine Not Detected (Not Detect)
[2022-07-29 21:25] LABS: Alanine Aminotransferase 197 U/L (0-31); Albumin Level 3.8 g/dL (3.5-5.0); Alkaline Phosphatase 71 U/L (39-117); Anion Gap 13 (12-20); Aspartate Amino Transferase 92 U/L (5-31); Bacteria Urine None Seen (None Seen); Bilirubin Direct 0.2 mg/dL (0.0-0.5); Bilirubin Total 0.5 mg/dL (0.0-1.0); Blood Urea Nitrogen 8 mg/dL (9-16); Calcium 8.9 mg/dL (8.4-10.2); Calcium Oxalate Crystals Urine Present; Carbon Dioxide 25 mmol/L (22-29); Chloride 105 mmol/L (96-108); Creatinine Clr Calc Pharmacy 96.1; Estimated Glomerular Filt Rate > 60; Glucose Random 85 mg/dL (60-115); Magnesium 1.9 mg/dL (1.6-2.6); Potassium 3.9 mmol/L (3.3-5.1); RBC Urine >20 /HPF (0-2); Sodium 139 mmol/L (135-145); Total Protein 6.6 g/dL (6.5-8.0); WBC Urine 0-5 /HPF (0-5)
[2022-07-29 21:31] LABS: Ethanol < 10 mg/dL
[2022-07-30 01:09] VITALS: BP 108/51; PULSE 73; RESP 16; TEMP 37.1; O2SAT 100
[2022-07-30 01:50] LABS: UPreg QC Valid YES; Urine Pregnancy NEGATIVE (NEGATIVE)
[2022-07-30 03:20] VITALS: BP 117/84; PULSE 84; RESP 16; TEMP 37; O2SAT 100
--- NOTE | 2022-07-30 03:44 | PC.NURSE ---
late entry-pt resting comfortably on stretcher, pt requested sandwich. this rn provided sandwich
--- NOTE | 2022-07-30 03:44 | PC.NURSE ---
pt sleeping on stretcher at this time
[2022-07-30 06:17] VITALS: BP 122/84; PULSE 84; RESP 16; TEMP 37; O2SAT 96
[2022-07-30 07:18] VITALS: PULSE 73
[2022-07-30 09:52] VITALS: BP 106/46; PULSE 75; RESP 16; TEMP 36.7; O2SAT 98
--- NOTE | 2022-07-30 10:35 | MHC.RECOVRN ---
This fha underwriter met w/ patient, patient was resting, awake to verbal command. Patient requesting detox, patient interested in detoxes in [facility], reviewed detox bedsearch process. Patient states has been using 1 gram CRACK/YANDEL daily and 3 grams Heroin IN/IV daily for past 8 months. Patient states no hx of overdoses. Patient reports has been through ATS, CSS,TSS level of care in the past. T/W sent ATS referrals.
--- NOTE | 2022-07-30 11:50 | MHC.RECOVRN ---
Addendum entered by Destiney Fallon RN 07/30/22 13:57: This commercial loan underwriter met w/ patient, reviewed status of female detox beds. T/W reviewed recovery resources at the bedside, pt encouraged to call [facility] to get on detox waitlist, patient encouraged to call [facility] and [facility] tomorrow to f/u about open beds. [facility] information reviewed, [facility] can help with transport and help with detox placement. Recovery resources left at bedside including [facility], detox call list. Bus passes provided. Patient verbalized understanding. Original Note: This commercial loan underwriter received review from [facility], [facility] no female beds, [facility] no female beds, [facility] no female beds.
== END 2022-07-30 12:48 | disposition home or self-care (01) ==
PROVIDERS: Physician Assistant; Emergency Provider Student in an Organized Health Care Education/Training Program; PCP Internal Medicine
DX: F11.10 Opioid abuse, uncomplicated (principal); F14.10 Cocaine abuse, uncomplicated; F17.210 Nicotine dependence, cigarettes, uncomplicated; Z20.822 Contact with and (suspected) exposure to COVID-19; Z20.828 Contact with and (suspected) exposure to other viral communicable diseases; Z79.899 Other long term (current) drug therapy; Z71.6 Tobacco abuse counseling; Z71.51 Drug abuse counseling and surveillance of drug abuser
CPT/HCPCS: 36415; 80048; 80076; 80307; 81001; 81025; 82077; 83735; 85025; 87635; 99284

== ENCOUNTER 2022-08-12 22:21 | Emergency (ER) | payer OTHER, SELFPAY ==
[2022-08-12 22:28] VITALS: BP 142/85; PULSE 109; RESP 16; TEMP 36.7; O2SAT 98; BMI 25.4
[2022-08-12 22:57] LABS: Basophils Absolute Auto 0.1 X10*3/uL (0.0-0.2); Basophils Percent Auto 0.9 % (0-2); Eosinophils Absolute Auto 0.1 X10*3/uL (0.0-0.4); Eosinophils Percent Auto 1.2 % (0-4); Hematocrit 34.6 % (37.0-47.0); Hemoglobin 11.7 g/dl (12.0-16.0); Imm Gran Abs Auto 0.01 X10*3/uL (0.00-0.03); Imm Gran Pct Auto 0.1 % (0.0-0.4); Lymphocytes Absolute Auto 1.9 X10*3/uL (1.2-4.9); Lymphocytes Percent Auto 28.5 % (20-40); MANUAL DIFF FLAG NO; Mean Corpuscular HGB Conc 33.8 g/dl (31.0-35.0); Mean Corpuscular Hemoglobin 30.9 pg (27.0-33.0); Mean Corpuscular Volume 91.3 fL (80.0-98.0); Mean Platelet Volume 10.3 fL (9.4-12.3); Monocytes Absolute Auto 0.5 X10*3/uL (0.1-1.2); Monocytes Percent Auto 7.2 % (2-11); Neutrophils Absolute Auto 4.2 x10*3/uL (2.0-8.3); Neutrophils Percent Auto 62.1 % (45-73); Platelet Count 245 X10*3/uL (160-400); Red Blood Count 3.79 X10*6/uL (4.20-5.50); Red Cell Distribution Width 12.5 % (11.0-16.0); White Blood Count 6.7 X10*3/uL (4.8-10.8)
[2022-08-12 23:33] LABS: Alanine Aminotransferase 159 U/L (0-31); Alkaline Phosphatase 70 U/L (39-117); Anion Gap 15 (12-20); Aspartate Amino Transferase 120 U/L (5-31); Bilirubin Total 0.4 mg/dL (0.0-1.0); Blood Urea Nitrogen 10 mg/dL (9-16); Carbon Dioxide 22 mmol/L (22-29); Chloride 105 mmol/L (96-108); Creatinine Clr Calc Pharmacy 103.2; Estimated Glomerular Filt Rate > 60; Ethanol < 10 mg/dL; Glucose Random 118 mg/dL (60-115); Potassium 3.6 mmol/L (3.3-5.1); Sodium 138 mmol/L (135-145); Total Protein 6.7 g/dL (6.5-8.0)
--- NOTE | 2022-08-13 01:36 | ED_ITS ---
HPI - Alcohol General Chief Complaint: ETOH/Substance Use Stated Complaint: detox Time Seen by Provider: 08/13/22 01:20 Source: patient Mode of arrival: ambulatory Limitations: no limitations History of Present Illness HPI narrative: 31-year-old female who presents to the emergency department requesting detox from cocaine and heroin. The patient states that she has been using cocaine for several years. She states that she smokes cocaine daily but can not quantify how much cocaine she smokes. She last used yesterday. She states that she also snorts in injects heroin daily. She states she uses at least 3 bags. She states she both injected and snorted heroin yesterday. The patient states that she does drink alcohol but has not had a drink for at least 2-3 weeks. She states that she has been on a Suboxone and methadone program in the past and would be interested in starting 1 of these treatments again for her opiate addiction. She states that over the last 2 days she has had rhinorrhea and muscle pain. She denied fever, chills, sore throat, cough, chest pain, shortness of breath, nausea, vomiting, diarrhea. The patient states that she moved back to this area from [place] approximately 3 weeks prior. She was living with her sister however her sister recently kicked her out and she is now homeless. Related Data Home Medications Medication Instructions Recorded Confirmed aripiprazole 2 mg tablet 1 tab PO DAILY 03/07/22 03/07/22 buprenorphine 12 mg-naloxone 3 mg 1 strip sublingual DAILY 03/07/22 03/07/22 sublingual film (Suboxone) prazosin 5 mg capsule 2 cap PO DAILY 03/07/22 03/07/22 Previous Rx's Medication Instructions Recorded fluoxetine 40 mg capsule 40 mg PO DAILY #30 caps 09/30/21 albuterol sulfate 90 mcg/actuation 2 inh inhalation Q6-8H PRN 03/08/22 aerosol inhaler shortness of breath or wheezing #18 grams prednisone 20 mg tablet 40 mg PO DAILY #8 tabs 03/08/22 quetiapine 25 mg tablet (Seroquel) 25 mg PO DAILY #10 tabs 03/08/22 quetiapine 50 mg tablet 1 tab PO BEDTIME #10 tabs 03/08/22 nitrofurantoin 100 mg PO BID #14 caps 07/27/22 monohydrate/macrocrystals 100 mg capsule (Macrobid) Allergies Allergy/AdvReac Type Severity Reaction Status Date / Time morphine AdvReac Vomiting Verified 09/29/21 15:27 Review of Systems Review of Systems: Yes all other systems are reviewed and are negative [facility] Past Medical History [facility] Narrative: Past medical history: Reviewed below. Social history: The patient is homeless. She smokes 1-1/2 pack of cigarettes per day times 15 years. She does drink alcohol but has had no alcohol to drink times several weeks. She uses crack cocaine daily and heroin daily (intranasal and injection). She last use both of these drugs yesterday. Medical History Active substance abuse Anxiety and depression Asthma Polysubstance abuse PTSD (post-traumatic stress disorder) Schizophrenia Family History Family History Mother Asthma Father Asthma Diabetes Paternal Grandfather Asthma Diabetes Social History Social History Alcohol intake: current Alcohol intake frequency: other Patient Tobacco Use Status: Current everyday Tobacco user Tobacco use type: Cigarette Cigarette Packs Per Day: 0.5 Cigarettes Per Day: 10.0 Smoked in Last 30 Days: Yes Use of substances other than those prescribed or required for medical reasons: Yes Substance Use Type: Crack/Cocaine and Heroin Substance Use Frequency: Chronic Longstanding Last Used Substance: Hours (ago) Any prior treatment program specific to substance use: Yes Advance Directives: Yes Advance Directives on File: Yes Advance Directives Date on File: 03/11/22 Patient : No service: No Current occupational status: other Physical Exam ED Vital Signs: Vital Signs - 24 hr 08/12/22 22:28 08/13/22 02:29 08/13/22 05:27 Temperature 98.1 F 98.0 F Pulse Rate 109 H 93 86 Respiratory Rate 16 16 14 Blood Pressure 142/85 H 91/45 L 94/42 L Pulse Oximetry 98 97 97 Oxygen Delivery Method Room Air Room Air Room Air BMI result Body Mass Index 25.4 Const General: cooperative and no acute distress Orientation/consciousness: oriented to person and oriented to place Limitations: no limitations HENMT Head: Yes normal to inspection, Yes normocephalic and Yes atraumatic Ears: external ears normal General nose exam: Normal external nose present Face and sinus: Yes normal facial exam Mouth: Normal oral and palatal mucosa present Throat: Yes posterior oropharynx normal Eyes General: appearance normal, both eyes and all related structures Pupils: Equal, round and reactive pupils present Neck Neck: Yes normal visual inspection, Yes no lymphadenopathy, Yes trachea midline and Yes supple Chest Chest palpation & inspection: normal inspection of the chest and normal palpation of entire chest wall Resp Effort & Inspection: normal respiratory effort and able to speak in complete sentences Auscultation: clear to auscultation bilaterally Cardio Rate: regular rate Rhythm: regular rhythm Heart sounds: S1 normal heart sound present, S2 normal heart sound present and no murmurs GI Inspection: Yes normal to inspection Palpation (GI): Soft to palpation, nontender and no guarding Auscultation: normal bowel sounds General: Yes no CVA tenderness Back/Spine/Pelvis Back: no CVA tenderness Skin Other: The injection sites on the patient's arm were inspected and I do not see any signs of obvious infection, erythema or abscess Neuro General: oriented to person and oriented to place Cranial nerves: Yes CN's II-XII intact bilaterally and Yes Equal, round and reactive pupils present Cognition (Neuro): normal cognition Motor exam (neuro): 5/5 motor strength present throughout Extrem General: Yes normal to inspection Psych Appearance: grossly normal Speech and movement: Normal speech and movement present Affect: normal affect Attitude: cooperative Thought process: Normal thought process present Thought content: Normal thought content present Medical Decision Making Medical Decision Making MDM Narrative: 31-year-old female with a history crack cocaine and heroin use (injection and intranasal) who presents emergency department requesting detox. Patient last use both of these drugs yesterday. She states she does drink alcohol but has not been drinking alcohol for weeks. Patient did complain of rhinorrhea and myalgias but otherwise had no other positive review of systems. Vital signs did reveal an elevated blood pressure of 142/85 and elevated heart rate of 109. Physical examination was unremarkable. I ordered a CBC, CMP, urine drug screen, ethanol level, influenza and COVID-19. Patient's medications will be reconciled. She will be placed in physician observation and kept in the emergency department until she can be evaluated by our classroom technology coach and care team to determine further treatment of her substance use disorder. 0828: My interpretation patient's laboratory evaluation as follows: Low H&H 11.7 and 34.6, elevated glucose 118, elevated AST and ALT of 120 and 159-similar elevations in the past. Alcohol below detectable limits. Urine tox screen pending collection. Start physician observation: Again of my shift, the patient is waiting to be evaluated by our care team and classroom technology coach therefore the patient will be kept in physician observation until a disposition can be determined. Lab Data 08/12/22 22:53 08/12/22 22:53 Labs: Lab Results 08/12/22 08/12/22 08/13/22 Range/Units 22:53 22:53 02:27 WBC 6.7 (4.8-10.8) X10*3/uL RBC 3.79 L (4.20-5.50) X10*6/uL Hgb 11.7 L (12.0-16.0) g/dl Hct 34.6 L (37.0-47.0) % MCV 91.3 (80.0-98.0) fL MCH 30.9 (27.0-33.0) pg MCHC 33.8 (31.0-35.0) g/dl RDW 12.5 (11.0-16.0) % Plt Count 245 (160-400) X10*3/uL MPV 10.3 (9.4-12.3) fL Immature Gran % (Auto) 0.1 (0.0-0.4) % Neut % (Auto) 62.1 (45-73) % Lymph % (Auto) 28.5 (20-40) % [place] % (Auto) 7.2 (2-11) % Eos % (Auto) 1.2 (0-4) % Baso % (Auto) 0.9 (0-2) % Lymph # (Auto) 1.9 (1.2-4.9) X10*3/uL [place] # (Auto) 0.5 (0.1-1.2) X10*3/uL Eos # (Auto) 0.1 (0.0-0.4) X10*3/uL Baso # (Auto) 0.1 (0.0-0.2) X10*3/uL Abs Immat Gran (auto) 0.01 (0.00-0.03) X10*3/uL Absolute Neuts (auto) 4.2 (2.0-8.3) x10*3/uL Absolute Nucleated RBC 0.000 (0.0-0.012) X10*3/uL Nucleated RBC % (auto) 0.0 (0.0-0.2) /100WBC Sodium 138 (135-145) mmol/L Potassium 3.6 (3.3-5.1) mmol/L Chloride 105 (96-108) mmol/L Carbon Dioxide 22 (22-29) mmol/L Anion Gap 15 (12-20) BUN 10 (9-16) mg/dL Creatinine 0.64 (0.5-1.4) mg/dL Estim Creat Clear Calc 103.2 Estimated GFR > 60 Random Glucose 118 H (60-115) mg/dL Calcium 9.0 (8.4-10.2) mg/dL Total Bilirubin 0.4 (0.0-1.0) mg/dL AST 120 H (5-31) U/L ALT 159 H (0-31) U/L Alkaline Phosphatase 70 (39-117) U/L Total Protein 6.7 (6.5-8.0) g/dL Albumin 4.0 (3.5-5.0) g/dL Ethyl Alcohol < 10 mg/dL COVID-19 ([facility]NA) (Negative) COVID-19 Clin Com Influenza Type A ([facility]OLINE) Negative (Negative) Influenza Type B ([facility]INE) Negative (Negative) Influenza A & B Note See Note 08/13/22 Range/Units 02:27 WBC (4.8-10.8) X10*3/uL RBC (4.20-5.50) X10*6/uL Hgb (12.0-16.0) g/dl Hct (37.0-47.0) % MCV (80.0-98.0) fL MCH (27.0-33.0) pg MCHC (31.0-35.0) g/dl RDW (11.0-16.0) % Plt Count (160-400) X10*3/uL MPV (9.4-12.3) fL Immature Gran % (Auto) (0.0-0.4) % Neut % (Auto) (45-73) % Lymph % (Auto) (20-40) % [place] % (Auto) (2-11) % Eos % (Auto) (0-4) % Baso % (Auto) (0-2) % Lymph # (Auto) (1.2-4.9) X10*3/uL [place] # (Auto) (0.1-1.2) X10*3/uL Eos # (Auto) (0.0-0.4) X10*3/uL Baso # (Auto) (0.0-0.2) X10*3/uL Abs Immat Gran (auto) (0.00-0.03) X10*3/uL Absolute Neuts (auto) (2.0-8.3) x10*3/uL Absolute Nucleated RBC (0.0-0.012) X10*3/uL Nucleated RBC % (auto) (0.0-0.2) /100WBC Sodium (135-145) mmol/L Potassium (3.3-5.1) mmol/L Chloride (96-108) mmol/L Carbon Dioxide (22-29) mmol/L Anion Gap (12-20) BUN (9-16) mg/dL Creatinine (0.5-1.4) mg/dL Estim Creat Clear Calc Estimated GFR Random Glucose (60-115) mg/dL Calcium (8.4-10.2) mg/dL Total Bilirubin (0.0-1.0) mg/dL AST (5-31) U/L ALT (0-31) U/L Alkaline Phosphatase (39-117) U/L Total Protein (6.5-8.0) g/dL Albumin (3.5-5.0) g/dL Ethyl Alcohol mg/dL COVID-19 ([facility]) Negative (Negative) COVID-19 Clin Com See Note Influenza Type A ([facility]INE) (Negative) Influenza Type B ([facility]INE) (Negative) Influenza A & B Note Discharge Plan Discharge Clinical Impression: Cocaine use, Heroin use Patient Disposition: Still a Patient Prescriptions: No Action prazosin 5 mg capsule 2 cap PO DAILY aripiprazole 2 mg tablet 1 tab PO DAILY buprenorphine-naloxone [Suboxone] 12-3 mg film 1 strip sublingual DAILY prednisone 20 mg tablet 40 mg PO DAILY Qty: 8 0RF quetiapine [Seroquel] 25 mg tablet 25 mg PO DAILY Qty: 10 0RF quetiapine 50 mg tablet 1 tab PO BEDTIME Qty: 10 0RF albuterol sulfate 90 mcg/actuation HFA aerosol inhaler 2 inh inhalation Q6-8H PRN (Reason: shortness of breath or wheezing) Qty: 18 0RF fluoxetine 40 mg capsule 40 mg PO DAILY Qty: 30 0RF nitrofurantoin monohyd/m-cryst [Macrobid] 100 mg capsule 100 mg PO BID Qty: 14 0RF Rx Instructions: must administer with a meal/food Interventions: [place]-Suicide Risk Severity Scale Last Done: 08/13/22 02:08
[2022-08-13 02:29] VITALS: BP 91/45; PULSE 93; RESP 16; TEMP 36.7; O2SAT 97
[2022-08-13 02:48] LABS: COVID-19 Test Negative (Negative); IDNOW Serial# 08D9AD1C; IDNOW Serial# 9DB6401D; Influenza A Negative (Negative); Influenza B2 Negative (Negative)
[2022-08-13 05:27] VITALS: BP 94/42; PULSE 86; RESP 14; O2SAT 97
[2022-08-13 08:01] VITALS: PULSE 81
[2022-08-13 08:28] VITALS: BP 91/54; PULSE 81; RESP 16; O2SAT 99
--- NOTE | 2022-08-13 08:58 | PC.NURSE ---
recover head coach at bedside talking to the pt
--- NOTE | 2022-08-13 09:07 | PHA.MEDREC ---
Pharmacy Consult ? Medication Reconciliation Pharmacy has completed the medication reconciliation. Patient confirmed all medications. Ange Schultz, TodD
--- NOTE | 2022-08-13 09:16 | MHC.RECOVRN ---
This card writer hand met w/ patient, patient, alert/oriented, requesting detox. Patient reports last use [employer] to hospital opiates/crack. Pt reports using 3-4 bags heroin daily IN/IV, smokes crack daily. Patient states has not consumed ETOH in 2 weeks. Patient reports had bought a few illicit Suboxone films, last use a BUP film 2 days ago. Patient has hx of all level of treatment ATS, CSS, TSS. Patient reports interest in detox in [facility] area. T/W to begin detox bedsearch.
[2022-08-13] MEDS: Acetaminophen 325 MG TABLET 975 MG PO (09:19)
--- NOTE | 2022-08-13 11:19 | MHC.RECOVRN ---
Addendum entered by Destiney Fallon RN 08/13/22 11:31: Reviewed plan w/ patient, patient verbalized understanding. reviewed one way Lyft to facility, [facility] [place] able [place] provide return transportation to area, patient verbalized understanding. Original Note: Patient request detox referral sent to [facility], interested in facilites in [facility], Referral sent to [facility], no female detox beds at [facility] currently. Confirmed that [facility] accepts walk ins and performs 16/12 detox bedsearch, patient requesting to be sent to [facility] as a walk in. [facility] aware of patient walking in and needing assistance with detox placement in [facility]. Referral sent to [facility] in [place], patient denied bed for one year at [facility] due to behavioral challenges during last stay. T/W to coordinate Lyft transport to [place]. Reviewed w/ patient concerns for risk for withdrawal, pt reports has meds at [facility] in [place], plans to attend [facility] in [place] to restart BUP rx.
== END 2022-08-13 11:56 | disposition home or self-care (01) ==
PROVIDERS: Emergency Provider Emergency Medicine Emergency Medical Services; PCP Internal Medicine
DX: F11.19 Opioid abuse with unspecified opioid-induced disorder (principal); F14.19 Cocaine abuse with unspecified cocaine-induced disorder; F17.210 Nicotine dependence, cigarettes, uncomplicated; Z20.822 Contact with and (suspected) exposure to COVID-19; Z20.828 Contact with and (suspected) exposure to other viral communicable diseases; Z79.899 Other long term (current) drug therapy; Z71.6 Tobacco abuse counseling
CPT/HCPCS: 36415; 80053; 82077; 85025; 87502; 87635; 99285

== ENCOUNTER 2022-09-15 00:33 | Emergency (ER) | payer OTHER, SELFPAY ==
[2022-09-15 00:38] VITALS: BP 115/58; PULSE 97; RESP 20; TEMP 36.5; O2SAT 97; BMI 29.2
[2022-09-15 02:28] VITALS: BP 117/82; PULSE 76; RESP 18; O2SAT 99
[2022-09-15 02:58] LABS: MANUAL DIFF FLAG NO
[2022-09-15 02:59] LABS: Basophils Absolute Auto 0.1 X10*3/uL (0.0-0.2); Basophils Percent Auto 1.3 % (0-2); Eosinophils Absolute Auto 0.3 X10*3/uL (0.0-0.4); Eosinophils Percent Auto 3.3 % (0-4); Hematocrit 38.2 % (37.0-47.0); Imm Gran Abs Auto 0.04 X10*3/uL (0.00-0.03); Imm Gran Pct Auto 0.5 % (0.0-0.4); Lymphocytes Absolute Auto 2.5 X10*3/uL (1.2-4.9); Mean Corpuscular Hemoglobin 30.7 pg (27.0-33.0); Mean Corpuscular Volume 90.3 fL (80.0-98.0); Mean Platelet Volume 9.9 fL (9.4-12.3); Monocytes Absolute Auto 0.3 X10*3/uL (0.1-1.2); Monocytes Percent Auto 3.7 % (2-11); Neutrophils Absolute Auto 4.8 x10*3/uL (2.0-8.3); Neutrophils Percent Auto 60.2 % (45-73); Platelet Count 314 X10*3/uL (160-400); Red Blood Count 4.23 X10*6/uL (4.20-5.50); Red Cell Distribution Width 12.7 % (11.0-16.0); White Blood Count 7.9 X10*3/uL (4.8-10.8)
[2022-09-15 03:15] LABS: Alanine Aminotransferase 147 U/L (0-31); Albumin Level 4.8 g/dL (3.5-5.0); Alkaline Phosphatase 59 U/L (39-117); Anion Gap 19 (12-20); Aspartate Amino Transferase 83 U/L (5-31); Bilirubin Total 0.7 mg/dL (0.0-1.0); Blood Urea Nitrogen 10 mg/dL (9-16); Calcium 9.3 mg/dL (8.4-10.2); Carbon Dioxide 25 mmol/L (22-29); Chloride 102 mmol/L (96-108); Creatinine Clr Calc Pharmacy 98.3; Estimated Glomerular Filt Rate > 60; Ethanol 95 mg/dL; Glucose Random 78 mg/dL (60-115); Sodium 142 mmol/L (135-145); Total Protein 8.2 g/dL (6.5-8.0)
--- NOTE | 2022-09-15 04:10 | ED.ALCOHOL ---
HPI - Alcohol General Chief Complaint: ETOH/Substance Use <Edgard Daniels MD - Last Filed: 09/15/22 04:13> Stated Complaint: detox, crisis <Edgard Daniels MD - Last Filed: 09/15/22 04:13> Time Seen by Provider: 09/15/22 04:08 <Edgard Daneils MD - Last Filed: 09/15/22 04:13> Source: patient <Edgard Daniels MD - Last Filed: 09/15/22 04:13> Mode of arrival: ambulatory <Edgard Daniels MD - Last Filed: 09/15/22 04:13> Limitations: other (Somnolence) <Edgard Daniels MD - Last Filed: 09/15/22 04:13> History of Present Illness HPI narrative: 31-year-old female presents for alcohol-related issues. Upon my evaluation, patient is somnolent. She is not answering any questions. Reportedly, patient is interested in detox. She is not suicidal homicidal per report. I am not able to corroborate this. <Edgard Daniels MD - Last Filed: 09/15/22 04:13> Related Data Home Medications: Home Medications Medication Instructions Recorded Confirmed nicotine (polacrilex) 2 mg buccal 2 mg buccal Q2-4H PRN Nicotine 08/13/22 08/13/22 lozenge Cravings nicotine 21 mg/24 hr daily 1 patch topical DAILY 08/13/22 08/13/22 transdermal patch prazosin 1 mg capsule 1 cap PO BID 08/13/22 08/13/22 prazosin 5 mg capsule 1 cap PO BEDTIME 08/13/22 08/13/22 quetiapine 100 mg tablet 100 mg PO BEDTIME 08/13/22 08/13/22 quetiapine 25 mg tablet (Seroquel) 25 mg PO BID@0900,1200 08/13/22 08/13/22 sertraline 50 mg tablet 1 tab PO DAILY 08/13/22 08/13/22 Previous Rx's Medication Instructions Recorded albuterol sulfate 90 mcg/actuation 2 inh inhalation Q6-8H PRN 03/08/22 aerosol inhaler shortness of breath or wheezing #18 grams <Edgard Daniels MD - Last Filed: 09/15/22 04:13> Allergies/Adverse Reactions: Allergies Allergy/AdvReac Type Severity Reaction Status Date / Time morphine AdvReac Vomiting Verified 09/29/21 15:27 <Edgard Daniels MD - Last Filed: 09/15/22 04:13> [facility] Past Medical History Medical History: Medical History Active substance abuse Anxiety and depression Asthma Polysubstance abuse PTSD (post-traumatic stress disorder) Schizophrenia <Edgard Daniels MD - Last Filed: 09/15/22 04:13> Family History Family History: Family History Mother Asthma Father Asthma Diabetes Paternal Grandfather Asthma Diabetes <Edgard Daniels MD - Last Filed: 09/15/22 04:13> Social History Social History: Social History Alcohol intake: current Alcohol intake frequency: 3 or more drinks per day Alcohol type: hard liquor Patient Tobacco Use Status: Current everyday Tobacco user Tobacco use type: Cigarette Cigarette Packs Per Day: 0.5 Cigarettes Per Day: 10.0 Smoked in Last 30 Days: Yes Use of substances other than those prescribed or required for medical reasons: Yes Substance Use Type: Crack/Cocaine, Heroin and Methamphetamine Substance Use Frequency: Daily Last Used Substance: Hours (ago) Any prior treatment program specific to substance use: Yes Advance Directives: Yes Advance Directives on File: Yes Advance Directives Date on File: 03/11/22 service: No Current occupational status: other <Edgard Daniels MD - Last Filed: 09/15/22 04:13> Physical Exam ED Vital Signs: Vital Signs - 24 hr 09/15/22 00:38 09/15/22 02:28 09/15/22 06:00 Temperature 97.7 F 98.4 F Pulse Rate 97 76 76 Respiratory Rate 20 18 12 Blood Pressure 115/58 L 117/82 84/51 L Pulse Oximetry 97 99 98 Oxygen Delivery Method Room Air Room Air Room Air 09/15/22 06:11 09/15/22 06:35 09/15/22 10:17 Temperature Pulse Rate 76 76 Respiratory Rate 16 18 Blood Pressure 91/57 L 101/43 L 89/37 L Pulse Oximetry 97 96 Oxygen Delivery Method Room Air Room Air BMI result Body Mass Index 29.2 <Edgard Daniels MD - Last Filed: 09/15/22 04:13> Vital Signs - 24 hr 09/15/22 00:38 09/15/22 02:28 09/15/22 06:00 Temperature 97.7 F 98.4 F Pulse Rate 97 76 76 Respiratory Rate 20 18 12 Blood Pressure 115/58 L 117/82 84/51 L Pulse Oximetry 97 99 98 Oxygen Delivery Method Room Air Room Air Room Air 09/15/22 06:11 09/15/22 06:35 09/15/22 10:17 Temperature Pulse Rate 76 76 Respiratory Rate 16 18 Blood Pressure 91/57 L 101/43 L 89/37 L Pulse Oximetry 97 96 Oxygen Delivery Method Room Air Room Air BMI result Body Mass Index 29.2 <Darrin Sharma MD - Last Filed: 09/15/22 13:31> GEN: Well developed, somnolent HEENT: Normocephalic, atraumatic, normal external ears, nose appears normal, no oropharyngeal edema or exudates Eyes: Normal to appearance Neck: Supple, no lymphadenopathy Respiratory: Talks in complete sentences, no respiratory distress, clear to auscultation bilaterally Cardiovascular: Regular rate and rhythm, no murmurs rubs or gallops Abdomen: Soft, nontender, nondistended, no guarding, no rebound Back: No CVA tenderness Extremities: No clubbing cyanosis or edema Neurologic: No focal neurologic deficits, <Edgard Daniels MD - Last Filed: 09/15/22 04:13> Course Course Course Narrative: 31-year-old female presents with reported request for detox. I was unable to get any history from patient. She was somnolent and not willing to answer questions at this time. Per report, she is interested in detox. There are no reports of suicidal homicidal ideation. <Edgard Daniels MD - Last Filed: 09/15/22 04:13> 31-year-old female presents with reported request for detox. I was unable to get any history from patient. She was somnolent and not willing to answer questions at this time. Per report, she is interested in detox. There are no reports of suicidal homicidal ideation. 1213: Physician observation continued: Patient has been seen by care team/employment coach for detox. I did order reconciliation the patient's medications and will order them when the reconciliation is available. Patient has no complaints at this time. Patient will be kept in the emergency department until we can find a detox bed for her. 1328: Patient has been accepted to detox program in [facility] in [place] <Darrin Sharma MD - Last Filed: 09/15/22 13:31> Medical Decision Making Medical Decision Making [facility] Narrative: Patient presents for substance abuse related issues. I was unable to obtain information regarding the reason she is here but from the nurse, patient is requesting detox. My evaluation did reveal no focal deficits. Abdomen was soft and nontender. Cardiopulmonary exam was otherwise unremarkable <Edgard Daniels MD - Last Filed: 09/15/22 04:13> Differential Diagnosis Differential Diagnoses: The differential diagnosis associated with the presentation includes (Alcohol intoxication, substance abuse, depression, anxiety, mood disorder, sees adjustment disorder) <Edgard Daniels MD - Last Filed: 09/15/22 04:13> Admission/Observation Consideration of admission/observation: Escalation of care including admission/observation considered <Edgard Daniels MD - Last Filed: 09/15/22 04:13> Lab Data [facility] Lab Attestation statement: I reviewed the patient's lab results. <Edgard Daniels MD - Last Filed: 09/15/22 04:13> Result Diagrams: 09/15/22 02:54 09/15/22 02:54 <Edgard Daniels MD - Last Filed: 09/15/22 04:13> Labs: Lab Results 09/15/22 09/15/22 Range/Units 02:54 02:54 WBC 7.9 (4.8-10.8) X10*3/uL RBC 4.23 (4.20-5.50) X10*6/uL Hgb 13.0 (12.0-16.0) g/dl Hct 38.2 (37.0-47.0) % MCV 90.3 (80.0-98.0) fL MCH 30.7 (27.0-33.0) pg MCHC 34.0 (31.0-35.0) g/dl RDW 12.7 (11.0-16.0) % Plt Count 314 D (160-400) X10*3/uL MPV 9.9 (9.4-12.3) fL Immature Gran % (Auto) 0.5 H (0.0-0.4) % Neut % (Auto) 60.2 (45-73) % Lymph % (Auto) 31.0 (20-40) % [place] % (Auto) 3.7 (2-11) % Eos % (Auto) 3.3 (0-4) % Baso % (Auto) 1.3 (0-2) % Lymph # (Auto) 2.5 (1.2-4.9) X10*3/uL [place] # (Auto) 0.3 (0.1-1.2) X10*3/uL Eos # (Auto) 0.3 (0.0-0.4) X10*3/uL Baso # (Auto) 0.1 (0.0-0.2) X10*3/uL Abs Immat Gran (auto) 0.04 H (0.00-0.03) X10*3/uL Absolute Neuts (auto) 4.8 (2.0-8.3) x10*3/uL Absolute Nucleated RBC 0.000 (0.0-0.012) X10*3/uL Nucleated RBC % (auto) 0.0 (0.0-0.2) /100WBC Sodium 142 (135-145) mmol/L Potassium 4.0 (3.3-5.1) mmol/L Chloride 102 (96-108) mmol/L Carbon Dioxide 25 (22-29) mmol/L Anion Gap 19 (12-20) BUN 10 (9-16) mg/dL Creatinine 0.72 (0.5-1.4) mg/dL Estim Creat Clear Calc 98.3 Estimated GFR > 60 Random Glucose 78 (60-115) mg/dL Calcium 9.3 (8.4-10.2) mg/dL Total Bilirubin 0.7 (0.0-1.0) mg/dL AST 83 H (5-31) U/L ALT 147 H (0-31) U/L Alkaline Phosphatase 59 (39-117) U/L Total Protein 8.2 H (6.5-8.0) g/dL Albumin 4.8 (3.5-5.0) g/dL Ethyl Alcohol 95 mg/dL <Edgard Daniels MD - Last Filed: 09/15/22 04:13> Lab Results 09/15/22 09/15/22 Range/Units 02:54 02:54 WBC 7.9 (4.8-10.8) X10*3/uL RBC 4.23 (4.20-5.50) X10*6/uL Hgb 13.0 (12.0-16.0) g/dl Hct 38.2 (37.0-47.0) % MCV 90.3 (80.0-98.0) fL MCH 30.7 (27.0-33.0) pg MCHC 34.0 (31.0-35.0) g/dl RDW 12.7 (11.0-16.0) % Plt Count 314 D (160-400) X10*3/uL MPV 9.9 (9.4-12.3) fL Immature Gran % (Auto) 0.5 H (0.0-0.4) % Neut % (Auto) 60.2 (45-73) % Lymph % (Auto) 31.0 (20-40) % [place] % (Auto) 3.7 (2-11) % Eos % (Auto) 3.3 (0-4) % Baso % (Auto) 1.3 (0-2) % Lymph # (Auto) 2.5 (1.2-4.9) X10*3/uL [place] # (Auto) 0.3 (0.1-1.2) X10*3/uL Eos # (Auto) 0.3 (0.0-0.4) X10*3/uL Baso # (Auto) 0.1 (0.0-0.2) X10*3/uL Abs Immat Gran (auto) 0.04 H (0.00-0.03) X10*3/uL Absolute Neuts (auto) 4.8 (2.0-8.3) x10*3/uL Absolute Nucleated RBC 0.000 (0.0-0.012) X10*3/uL Nucleated RBC % (auto) 0.0 (0.0-0.2) /100WBC Sodium 142 (135-145) mmol/L Potassium 4.0 (3.3-5.1) mmol/L Chloride 102 (96-108) mmol/L Carbon Dioxide 25 (22-29) mmol/L Anion Gap 19 (12-20) BUN 10 (9-16) mg/dL Creatinine 0.72 (0.5-1.4) mg/dL Estim Creat Clear Calc 98.3 Estimated GFR > 60 Random Glucose 78 (60-115) mg/dL Calcium 9.3 (8.4-10.2) mg/dL Total Bilirubin 0.7 (0.0-1.0) mg/dL AST 83 H (5-31) U/L ALT 147 H (0-31) U/L Alkaline Phosphatase 59 (39-117) U/L Total Protein 8.2 H (6.5-8.0) g/dL Albumin 4.8 (3.5-5.0) g/dL Ethyl Alcohol 95 mg/dL <Darrin Sharma MD - Last Filed: 09/15/22 13:31> Prescription Management I considered prescription management with: Other (Anxiety medications) <Edgard Daniels MD - Last Filed: 09/15/22 04:13> Chronic Conditions Patient?s care impacted by: Other (Substance use) <Edgard Daniels MD - Last Filed: 09/15/22 04:13> Discharge Plan Discharge Clinical Impression: Cocaine abuse, Marijuana use Alcoholic intoxication Qualifiers: Complication of substance-induced condition: uncomplicated Qualified Code(s): F10.920 - Alcohol use, unspecified with intoxication, uncomplicated Opiate addiction Qualifiers: Substance use status: uncomplicated Qualified Code(s): F11.20 - Opioid dependence, uncomplicated <Edgard Daniels MD - Last Filed: 09/15/22 04:13> Patient Disposition: Home, Self-Care <Edgard Daniels MD - Last Filed: 09/15/22 04:13> Additional Instructions: You have been accepted at [facility] in [place] detox unit. Follow the care team instructions Follow-up with your doctor in 2 days. Please return to the emergency department if your symptoms get worse or if you develop any symptoms that are concerning to you. <Edgard Daniels MD - Last Filed: 09/15/22 04:13> Prescriptions: No Action albuterol sulfate 90 mcg/actuation HFA aerosol inhaler 2 inh inhalation Q6-8H PRN (Reason: shortness of breath or wheezing) Qty: 18 0RF prazosin 1 mg capsule 1 cap PO BID quetiapine 100 mg tablet 100 mg PO BEDTIME nicotine 21 mg/24 hr patch 24 hour 1 patch topical DAILY sertraline 50 mg tablet 1 tab PO DAILY prazosin 5 mg capsule 1 cap PO BEDTIME nicotine (polacrilex) 2 mg Lozenge 2 mg BUCCAL Q2-4H PRN (Reason: Nicotine Cravings) quetiapine [Seroquel] 25 mg tablet 25 mg PO BID@0900,1200 <Edgard Daniels MD - Last Filed: 09/15/22 04:13>
[2022-09-15 06:00] VITALS: BP 84/51; PULSE 76; RESP 12; TEMP 36.9; O2SAT 98
[2022-09-15 06:11] VITALS: BP 91/57
[2022-09-15 06:35] VITALS: BP 101/43; PULSE 76; RESP 16; O2SAT 97
--- NOTE | 2022-09-15 07:07 | PC.NURSE ---
Resumed care of patient this morning, she is currently resting in bed sleeping. Awaiting to be seen by a provider at this time for further orders
[2022-09-15 10:17] VITALS: BP 89/37; PULSE 76; RESP 18; O2SAT 96
--- NOTE | 2022-09-15 11:49 | MHC.RECOVSUP ---
Met with pt in [facility] for potential ATS. Pt reports using heroin, cocaine, and alcohol since February. Pt reports using about 20 bags a day nasally with no history of IV use and is unable to provide an average of how much cocaine or alcohol they use. Pt was at [facility] for ATS ?a few months ago? and reports having been on Suboxone but has not been to the clinic for about 1 week. Pt informs she is not currently experiencing withdrawals and is comfortable attending any ATS. Pt has no other questions or concerns at this time.
--- NOTE | 2022-09-15 13:09 | MHC.RECOVSUP ---
Addendum entered by Aayush Riojas 09/15/22 14:55: Pt is in [employer] heading to [facility]. Original Note: Pt accepted to [facility], [place] scheduled to pick her up around 2:10pm.
--- NOTE | 2022-09-15 13:57 | PHA.MEDREC ---
Addendum entered by Laura Schultz RPh 09/15/22 14:03: [facility] HAS REVIEWED MED REC Original Note: Pharmacy Consult ? Medication Reconciliation Pharmacy has completed the medication reconciliation. Spoke to patient to confirm all meds. Patient knew dosages of all medications. Patient states that recent changes to their medications since prior hospital visit (08/13/22) include fluoxetine 20mg daily, quetiapine 25mg daily and 100mg at bedtime, and prazosin 8mg at bedtime. Patient also states they take suboxone 8-2mg BID. Patient reports running out of prazosin and is not adherent to all medications.
== END 2022-09-15 14:27 | disposition home or self-care (01) ==
PROVIDERS: Emergency Medicine; Emergency Provider Emergency Medicine Emergency Medical Services
DX: F14.10 Cocaine abuse, uncomplicated (principal); F10.920 Alcohol use, unspecified with intoxication, uncomplicated; F11.20 Opioid dependence, uncomplicated; F12.10 Cannabis abuse, uncomplicated; Y90.4 Blood alcohol level of 80-99 mg/100 ml; Z71.51 Drug abuse counseling and surveillance of drug abuser; Z79.899 Other long term (current) drug therapy
CPT/HCPCS: 36415; 80053; 82077; 85025; 99284; 99285

== ENCOUNTER 2022-09-27 01:50 | Emergency (ER) | payer OTHER, SELFPAY ==
[2022-09-27 02:03] VITALS: BP 101/60; PULSE 112; RESP 18; TEMP 36.8; O2SAT 100; BMI 31.2
[2022-09-27 02:36] LABS: Basophils Absolute Auto 0.1 X10*3/uL (0.0-0.2); Basophils Percent Auto 0.6 % (0-2); Eosinophils Percent Auto 0.3 % (0-4); Hematocrit 37.3 % (37.0-47.0); Hemoglobin 12.8 g/dl (12.0-16.0); Imm Gran Abs Auto 0.04 X10*3/uL (0.00-0.03); Imm Gran Pct Auto 0.3 % (0.0-0.4); Lymphocytes Absolute Auto 1.9 X10*3/uL (1.2-4.9); Lymphocytes Percent Auto 16.1 % (20-40); MANUAL DIFF FLAG NO; Mean Corpuscular HGB Conc 34.3 g/dl (31.0-35.0); Mean Corpuscular Hemoglobin 31.1 pg (27.0-33.0); Mean Corpuscular Volume 90.8 fL (80.0-98.0); Mean Platelet Volume 9.7 fL (9.4-12.3); Monocytes Absolute Auto 1.2 X10*3/uL (0.1-1.2); Monocytes Percent Auto 10.1 % (2-11); Neutrophils Absolute Auto 8.4 x10*3/uL (2.0-8.3); Neutrophils Percent Auto 72.6 % (45-73); Platelet Count 263 X10*3/uL (160-400); Red Blood Count 4.11 X10*6/uL (4.20-5.50); Red Cell Distribution Width 12.5 % (11.0-16.0); White Blood Count 11.6 X10*3/uL (4.8-10.8)
[2022-09-27 02:49] LABS: COVID-19 Test Negative (Negative); IDNOW Serial# BCCEAD1C
[2022-09-27 03:07] LABS: Alanine Aminotransferase 203 U/L (0-31); Albumin Level 4.2 g/dL (3.5-5.0); Alkaline Phosphatase 70 U/L (39-117); Anion Gap 17 (12-20); Aspartate Amino Transferase 307 U/L (5-31); Bilirubin Total 0.8 mg/dL (0.0-1.0); Blood Urea Nitrogen 18 mg/dL (9-16); Calcium 9.6 mg/dL (8.4-10.2); Carbon Dioxide 24 mmol/L (22-29); Chloride 100 mmol/L (96-108); Creatinine Clr Calc Pharmacy 82.1; Estimated Glomerular Filt Rate > 60; Ethanol < 10 mg/dL; Glucose Random 60 mg/dL (60-115); Potassium 4.3 mmol/L (3.3-5.1); Sodium 137 mmol/L (135-145); Total Protein 7.2 g/dL (6.5-8.0)
--- NOTE | 2022-09-27 03:09 | ED_ITS ---
HPI - General Adult General Chief complaint: General Medical Stated complaint: Psych/Detox Time Seen by Provider: 09/27/22 02:07 Source: patient Mode of arrival: ambulatory Limitations: no limitations History of Present Illness HPI narrative: Patient history of bipolar disorder depression PTSD with substance abuse use cocaine and heroin was sober for 2 years started using drugs again for 2 years wants some help wanted a section 12 herself for detox denies any SI patient self checked out from detox 2 weeks ago and started using drugs again Related Data Home Medications Medication Instructions Recorded Confirmed nicotine (polacrilex) 2 mg buccal 2 mg buccal Q2-4H PRN Nicotine 08/13/22 09/27/22 lozenge Cravings nicotine 21 mg/24 hr daily 1 patch topical DAILY 08/13/22 09/27/22 transdermal patch acetaminophen 325 mg tablet 650 mg PO Q6H PRN Pain, Moderate 09/27/22 09/27/22 albuterol sulfate 90 mcg/actuation 2 inh inhalation Q4H PRN Shortness 09/27/22 09/27/22 aerosol inhaler (Ventolin HFA) Of Breath buspirone 5 mg tablet 5 mg PO BID 09/27/22 09/27/22 metronidazole 500 mg tablet 500 mg PO BID 09/27/22 09/27/22 nicotine 14 mg/24 hr daily 1 patch topical DAILY 09/27/22 09/27/22 transdermal patch olanzapine 2.5 mg tablet 2.5 mg PO BEDTIME 09/27/22 09/27/22 olanzapine 5 mg tablet 5 mg PO BEDTIME 09/27/22 09/27/22 prazosin 1 mg capsule 3 mg PO BEDTIME 09/27/22 09/27/22 quetiapine 100 mg tablet 100 mg PO BEDTIME 09/27/22 09/27/22 sertraline 50 mg tablet 50 mg PO DAILY 09/27/22 09/27/22 Allergies Allergy/AdvReac Type Severity Reaction Status Date / Time morphine AdvReac Vomiting Verified 09/29/21 15:27 Review of Systems Review of Systems: Yes all other systems are reviewed and are negative PMFSH Past Medical History Medical History Active substance abuse Anxiety and depression Asthma Polysubstance abuse PTSD (post-traumatic stress disorder) Schizophrenia Family History Family History Mother Asthma Father Asthma Diabetes Paternal Grandfather Asthma Diabetes Social History Social History Alcohol intake: current Alcohol intake frequency: 3 or more drinks per day Alcohol type: hard liquor Patient Tobacco Use Status: Current everyday Tobacco user Tobacco use type: Cigarette Cigarette Packs Per Day: 0.5 Cigarettes Per Day: 10.0 Substance Use Type: Crack/Cocaine, Heroin and Methamphetamine Advance Directives Date on File: 03/11/22 service: No Current occupational status: other Physical Exam ED Vital Signs: Vital Signs - 24 hr 09/27/22 02:03 Temperature 98.3 F Pulse Rate 112 H Respiratory Rate 18 Blood Pressure 101/60 Pulse Oximetry 100 Oxygen Delivery Method Room Air BMI result Body Mass Index 31.2 Appearance: Alert. Oriented X3. No acute distress. ENT: Pharynx normal. Oral Mucosa moist Neck: Normal inspection. Neck supple. CVS: Normal heart rate and rhythm. Pulses normal. Respiratory: No respiratory distress. Equal air entry bilateral, no wheezing/rales/rhonchi Abdomen: Soft and nontender. Bowel sounds are present, no mass palpable, no CVA tenderness Skin: Skin warm and dry. Normal skin color. Normal skin turgor. Extremities: No lower extremity edema. No calf tenderness NoIVDA track paul Neuro: Oriented X 3. No motor deficit. No sensory deficit.No cerebellar signs , cranial nerves II-XII intact Medical Decision Making Medical Decision Making MDM Narrative: Patient polysubstance abuse with depression consult care team for dual diagnosis at admission Lab Data [facility] Lab Attestation statement: I reviewed the patient's lab results. 09/27/22 02:30 09/27/22 02:30 Labs: Lab Results 09/27/22 09/27/22 09/27/22 Range/Units 02:30 02:30 02:30 WBC 11.6 H (4.8-10.8) X10*3/uL RBC 4.11 L (4.20-5.50) X10*6/uL Hgb 12.8 (12.0-16.0) g/dl Hct 37.3 (37.0-47.0) % MCV 90.8 (80.0-98.0) fL MCH 31.1 (27.0-33.0) pg MCHC 34.3 (31.0-35.0) g/dl RDW 12.5 (11.0-16.0) % Plt Count 263 (160-400) X10*3/uL MPV 9.7 (9.4-12.3) fL Immature Gran % (Auto) 0.3 (0.0-0.4) % Neut % (Auto) 72.6 (45-73) % Lymph % (Auto) 16.1 L (20-40) % [place] % (Auto) 10.1 (2-11) % Eos % (Auto) 0.3 (0-4) % Baso % (Auto) 0.6 (0-2) % Lymph # (Auto) 1.9 (1.2-4.9) X10*3/uL [place] # (Auto) 1.2 (0.1-1.2) X10*3/uL Eos # (Auto) 0.0 (0.0-0.4) X10*3/uL Baso # (Auto) 0.1 (0.0-0.2) X10*3/uL Abs Immat Gran (auto) 0.04 H (0.00-0.03) X10*3/uL Absolute Neuts (auto) 8.4 H (2.0-8.3) x10*3/uL Absolute Nucleated RBC 0.000 (0.0-0.012) X10*3/uL Nucleated RBC % (auto) 0.0 (0.0-0.2) /100WBC Sodium 137 (135-145) mmol/L Potassium 4.3 (3.3-5.1) mmol/L Chloride 100 (96-108) mmol/L Carbon Dioxide 24 (22-29) mmol/L Anion Gap 17 (12-20) BUN 18 H (9-16) mg/dL Creatinine 0.89 (0.5-1.4) mg/dL Estim Creat Clear Calc 82.1 Estimated GFR > 60 Random Glucose 60 (60-115) mg/dL Calcium 9.6 (8.4-10.2) mg/dL Total Bilirubin 0.8 (0.0-1.0) mg/dL AST 307 H (5-31) U/L ALT 203 H (0-31) U/L Alkaline Phosphatase 70 (39-117) U/L Total Protein 7.2 (6.5-8.0) g/dL Albumin 4.2 (3.5-5.0) g/dL Ethyl Alcohol < 10 mg/dL COVID-19 ([facility]) Negative (Negative) COVID-19 Clin Com See Note Discharge Plan Discharge Clinical Impression: Opioid use disorder, Depression Patient Disposition: Still a Patient Prescriptions: No Action nicotine 21 mg/24 hr patch 24 hour 1 patch topical DAILY nicotine (polacrilex) 2 mg Lozenge 2 mg BUCCAL Q2-4H PRN (Reason: Nicotine Cravings) buspirone 5 mg tablet 5 mg PO BID acetaminophen 325 mg tablet 650 mg PO Q6H PRN (Reason: Pain, Moderate) nicotine 14 mg/24 hr patch 24 hour 1 patch topical DAILY prazosin 1 mg capsule 3 mg PO BEDTIME olanzapine 5 mg tablet 5 mg PO BEDTIME metronidazole 500 mg tablet 500 mg PO BID olanzapine 2.5 mg tablet 2.5 mg PO BEDTIME quetiapine 100 mg tablet 100 mg PO BEDTIME albuterol sulfate [Ventolin HFA] 90 mcg/actuation HFA aerosol inhaler 2 inh inhalation Q4H PRN (Reason: Shortness Of Breath) sertraline 50 mg tablet 50 mg PO DAILY
--- NOTE | 2022-09-27 06:12 | PC.NURSE ---
Patient slept through the night, no distress observed/reported, labs completed/resulted except STEPHENSON, patient unable to provide urine sample, behavior pleasant and non concerning, med rec completed/pending provider's approval, care consult ordered for detox help, patient will be seen by recovery team for detox help, will continue to monitor.
--- NOTE | 2022-09-27 09:44 | MHC.RECOVRN ---
Met with pt in [facility] to discuss desire for ATS. Pt asking for [facility], educated regarding that process. Pt is interested in ATS. Reports using a few bags of heroin daily as well as cocaine. Pt willing to go to any ATS facility. Spoke with intake at [facility], 3 female beds available. Referral sent.
[2022-09-27] MEDS: metroNIDAZOLE 500 MG TABLET PO (10:07)
[2022-09-27] MEDS: Sertraline HCL 50 MG TABLET PO (10:07)
[2022-09-27] MEDS: busPIRone HCl 5 MG TABLET PO (10:07)
[2022-09-27 10:09] LABS: UPreg QC Valid YES; Urine Pregnancy NEGATIVE (NEGATIVE)
[2022-09-27 10:19] LABS: Amphetamine Screen Urine Not Detected (Not Detect); Barbiturates, Urine Not Detected (Not Detect); Benzodiazepines Screen Urine POSITIVE (Not Detect); Cannabinoid Screen Urine POSITIVE (Not Detect); Cocaine Screen Urine POSITIVE (Not Detect); Fentanyl, urine POSITIVE (Not Detect); Opiate Screen Urine POSITIVE (Not Detect); Phencyclidine Screen Urine Not Detected (Not Detect)
--- NOTE | 2022-09-27 10:35 | MHC.RECOVRN ---
Pt accepted to [facility] for 2:15pm. Will be transported via Lyft.
--- NOTE | 2022-09-27 10:42 | ED_ITS ---
HPI - General Adult General Chief complaint: General Medical Stated complaint: Psych/Detox Time Seen by Provider: 09/27/22 02:07 Source: patient Mode of arrival: ambulatory Limitations: no limitations Related Data Home Medications Medication Instructions Recorded Confirmed nicotine (polacrilex) 2 mg buccal 2 mg buccal Q2-4H PRN Nicotine 08/13/22 09/27/22 lozenge Cravings nicotine 21 mg/24 hr daily 1 patch topical DAILY 08/13/22 09/27/22 transdermal patch acetaminophen 325 mg tablet 650 mg PO Q6H PRN Pain, Moderate 09/27/22 09/27/22 albuterol sulfate 90 mcg/actuation 2 inh inhalation Q4H PRN Shortness 09/27/22 09/27/22 aerosol inhaler (Ventolin HFA) Of Breath buspirone 5 mg tablet 5 mg PO BID 09/27/22 09/27/22 metronidazole 500 mg tablet 500 mg PO BID 09/27/22 09/27/22 nicotine 14 mg/24 hr daily 1 patch topical DAILY 09/27/22 09/27/22 transdermal patch olanzapine 2.5 mg tablet 2.5 mg PO BEDTIME 09/27/22 09/27/22 olanzapine 5 mg tablet 5 mg PO BEDTIME 09/27/22 09/27/22 prazosin 1 mg capsule 3 mg PO BEDTIME 09/27/22 09/27/22 quetiapine 100 mg tablet 100 mg PO BEDTIME 09/27/22 09/27/22 sertraline 50 mg tablet 50 mg PO DAILY 09/27/22 09/27/22 Allergies Allergy/AdvReac Type Severity Reaction Status Date / Time morphine AdvReac Vomiting Verified 09/29/21 15:27 [facility] Past Medical History Medical History Active substance abuse Anxiety and depression Asthma Polysubstance abuse PTSD (post-traumatic stress disorder) Schizophrenia Family History Family History Mother Asthma Father Asthma Diabetes Paternal Grandfather Asthma Diabetes Social History Social History Alcohol intake: current Alcohol intake frequency: 3 or more drinks per day [place] type: hard liquor Patient Tobacco Use Status: Current everyday Tobacco user Tobacco use type: Cigarette Cigarette Packs Per Day: 0.5 Cigarettes Per Day: 10.0 Substance Use Type: Crack/Cocaine, Heroin and Methamphetamine Advance Directives: Yes Advance Directives on File: Yes Advance Directives Date on File: 03/11/22 service: No Current occupational status: other Physical Exam ED Vital Signs: Vital Signs - 24 hr 09/27/22 02:03 Temperature 98.3 F Pulse Rate 112 H Respiratory Rate 18 Blood Pressure 101/60 Pulse Oximetry 100 Oxygen Delivery Method Room Air BMI result Body Mass Index 31.2 Course Reevaluation(s) Reevaluation #1: pt was accepted to [facility] Time: 10:43 Medications Administered Generic Name Dose Route Start Last Admin Trade Name Freq PRN Reason Stop Dose Admin Buspirone HCl 5 mg 09/27/22 09:00 09/27/22 10:07 Buspirone Hcl 5 Mg Tablet PO 5 mg BID ERMA Administration Metronidazole 500 mg 09/27/22 09:00 09/27/22 10:07 Metronidazole 500 Mg Tablet PO 500 mg BID ERMA Administration Nicotine 14 mg 09/27/22 09:00 09/27/22 09:33 Nicotine 14 Mg Patch.[id number] TRANSDERMA Not Given DAILY ERMA Sertraline HCl 50 mg 09/27/22 09:00 09/27/22 10:07 Sertraline Hcl 50 Mg Tablet PO 50 mg DAILY ERMA Administration Medical Decision Making Lab Data 09/27/22 02:30 09/27/22 02:30 Labs: Lab Results 09/27/22 09/27/22 09/27/22 Range/Units 02:30 02:30 02:30 WBC 11.6 H (4.8-10.8) X10*3/uL RBC 4.11 L (4.20-5.50) X10*6/uL Hgb 12.8 (12.0-16.0) g/dl Hct 37.3 (37.0-47.0) % MCV 90.8 (80.0-98.0) fL MCH 31.1 (27.0-33.0) pg MCHC 34.3 (31.0-35.0) g/dl RDW 12.5 (11.0-16.0) % Plt Count 263 (160-400) X10*3/uL MPV 9.7 (9.4-12.3) fL Immature Gran % (Auto) 0.3 (0.0-0.4) % Neut % (Auto) 72.6 (45-73) % Lymph % (Auto) 16.1 L (20-40) % [place] % (Auto) 10.1 (2-11) % Eos % (Auto) 0.3 (0-4) % Baso % (Auto) 0.6 (0-2) % Lymph # (Auto) 1.9 (1.2-4.9) X10*3/uL [place] # (Auto) 1.2 (0.1-1.2) X10*3/uL Eos # (Auto) 0.0 (0.0-0.4) X10*3/uL Baso # (Auto) 0.1 (0.0-0.2) X10*3/uL Abs Immat Gran (auto) 0.04 H (0.00-0.03) X10*3/uL Absolute Neuts (auto) 8.4 H (2.0-8.3) x10*3/uL Absolute Nucleated RBC 0.000 (0.0-0.012) X10*3/uL Nucleated RBC % (auto) 0.0 (0.0-0.2) /100WBC Sodium 137 (135-145) mmol/L Potassium 4.3 (3.3-5.1) mmol/L Chloride 100 (96-108) mmol/L Carbon Dioxide 24 (22-29) mmol/L Anion Gap 17 (12-20) BUN 18 H (9-16) mg/dL Creatinine 0.89 (0.5-1.4) mg/dL Estim Creat Clear Calc 82.1 Estimated GFR > 60 Random Glucose 60 (60-115) mg/dL Calcium 9.6 (8.4-10.2) mg/dL Total Bilirubin 0.8 (0.0-1.0) mg/dL AST 307 H (5-31) U/L ALT 203 H (0-31) U/L Alkaline Phosphatase 70 (39-117) U/L Total Protein 7.2 (6.5-8.0) g/dL Albumin 4.2 (3.5-5.0) g/dL Urine Test (NEGATIVE) Urine Opiates Screen (Not Detect) Urine Fentanyl Screen (Not Detect) Ur Barbiturates Screen (Not Detect) Ur Phencyclidine Scrn (Not Detect) Ur Amphetamines Screen (Not Detect) U Benzodiazepines Scrn (Not Detect) Urine Cocaine Screen (Not Detect) U Marijuana (THC) Screen (Not Detect) Ethyl Alcohol < 10 mg/dL COVID-19 (DONNA) Negative (Negative) COVID-19 Clin Com See Note 09/27/22 09/27/22 Range/Units 09:59 10:00 WBC (4.8-10.8) X10*3/uL RBC (4.20-5.50) X10*6/uL Hgb (12.0-16.0) g/dl Hct (37.0-47.0) % MCV (80.0-98.0) fL MCH (27.0-33.0) pg MCHC (31.0-35.0) g/dl RDW (11.0-16.0) % Plt Count (160-400) X10*3/uL MPV (9.4-12.3) fL Immature Gran % (Auto) (0.0-0.4) % Neut % (Auto) (45-73) % Lymph % (Auto) (20-40) % [place] % (Auto) (2-11) % Eos % (Auto) (0-4) % Baso % (Auto) (0-2) % Lymph # (Auto) (1.2-4.9) X10*3/uL [place] # (Auto) (0.1-1.2) X10*3/uL Eos # (Auto) (0.0-0.4) X10*3/uL Baso # (Auto) (0.0-0.2) X10*3/uL Abs Immat Gran (auto) (0.00-0.03) X10*3/uL Absolute Neuts (auto) (2.0-8.3) x10*3/uL Absolute Nucleated RBC (0.0-0.012) X10*3/uL Nucleated RBC % (auto) (0.0-0.2) /100WBC Sodium (135-145) mmol/L Potassium (3.3-5.1) mmol/L Chloride (96-108) mmol/L Carbon Dioxide (22-29) mmol/L Anion Gap (12-20) BUN (9-16) mg/dL Creatinine (0.5-1.4) mg/dL Estim Creat Clear Calc Estimated GFR Random Glucose (60-115) mg/dL Calcium (8.4-10.2) mg/dL Total Bilirubin (0.0-1.0) mg/dL AST (5-31) U/L ALT (0-31) U/L Alkaline Phosphatase (39-117) U/L Total Protein (6.5-8.0) g/dL Albumin (3.5-5.0) g/dL Urine Test NEGATIVE (NEGATIVE) Urine Opiates Screen POSITIVE H (Not Detect) Urine Fentanyl Screen POSITIVE H (Not Detect) Ur Barbiturates Screen Not Detected (Not Detect) Ur Phencyclidine Scrn Not Detected (Not Detect) Ur Amphetamines Screen Not Detected (Not Detect) U Benzodiazepines Scrn POSITIVE H (Not Detect) Urine Cocaine Screen POSITIVE H (Not Detect) U Marijuana (THC) Screen POSITIVE H (Not Detect) Ethyl Alcohol mg/dL COVID-19 (DONNA) (Negative) COVID-19 Clin Com Discharge Plan Discharge Clinical Impression: Opioid use disorder, Depression Patient Disposition: Still a Patient Prescriptions: No Action nicotine 21 mg/24 hr patch 24 hour 1 patch topical DAILY nicotine (polacrilex) 2 mg Lozenge 2 mg BUCCAL Q2-4H PRN (Reason: Nicotine Cravings) buspirone 5 mg tablet 5 mg PO BID acetaminophen 325 mg tablet 650 mg PO Q6H PRN (Reason: Pain, Moderate) nicotine 14 mg/24 hr patch 24 hour 1 patch topical DAILY prazosin 1 mg capsule 3 mg PO BEDTIME olanzapine 5 mg tablet 5 mg PO BEDTIME metronidazole 500 mg tablet 500 mg PO BID olanzapine 2.5 mg tablet 2.5 mg PO BEDTIME quetiapine 100 mg tablet 100 mg PO BEDTIME albuterol sulfate [Ventolin HFA] 90 mcg/actuation HFA aerosol inhaler 2 inh inhalation Q4H PRN (Reason: Shortness Of Breath) sertraline 50 mg tablet 50 mg PO DAILY
== END 2022-09-27 13:38 | disposition other institution (70) ==
PROVIDERS: Emergency Provider Internal Medicine; PCP Internal Medicine
DX: F11.14 Opioid abuse with opioid-induced mood disorder (principal); F12.10 Cannabis abuse, uncomplicated; F14.10 Cocaine abuse, uncomplicated; Z71.51 Drug abuse counseling and surveillance of drug abuser; Z20.822 Contact with and (suspected) exposure to COVID-19; Z20.828 Contact with and (suspected) exposure to other viral communicable diseases; Z79.899 Other long term (current) drug therapy
CPT/HCPCS: 36415; 80053; 80307; 81025; 85025; 87635; 99283; 99284

== ENCOUNTER 2023-02-26 23:58 | Emergency (ER) | payer OTHER, SELFPAY ==
[2023-02-27] VITALS (7 sets, daily range): BP systolic 88–111; BP diastolic 51–68; PULSE 62–104; RESP 14–18; TEMP 36.1–36.8; O2SAT 97–100; BMI 34.4
--- NOTE | 2023-02-27 04:07 | ED_ITS ---
HPI - General Adult General Chief complaint: General Medical Stated complaint: requesting detox Time Seen by Provider: 02/27/23 03:12 Source: patient Mode of arrival: ambulatory Limitations: no limitations History of Present Illness HPI narrative: Patient with increased stress is recently homeless with history of substance abuse fentanyl and cocaine relapse after 1 year been using cocaine and last few days looking for detox and placement no alcohol use Related Data Home Medications Medication Instructions Recorded Confirmed nicotine (polacrilex) 2 mg buccal 2 mg buccal Q2-4H PRN Nicotine 08/13/22 09/27/22 lozenge Cravings nicotine 21 mg/24 hr daily 1 patch topical DAILY 08/13/22 09/27/22 transdermal patch acetaminophen 325 mg tablet 650 mg PO Q6H PRN Pain, Moderate 09/27/22 09/27/22 albuterol sulfate 90 mcg/actuation 2 inh inhalation Q4H PRN Shortness 09/27/22 09/27/22 aerosol inhaler (Ventolin HFA) Of Breath buspirone 5 mg tablet 5 mg PO BID 09/27/22 09/27/22 metronidazole 500 mg tablet 500 mg PO BID 09/27/22 09/27/22 nicotine 14 mg/24 hr daily 1 patch topical DAILY 09/27/22 09/27/22 transdermal patch olanzapine 2.5 mg tablet 2.5 mg PO BEDTIME 09/27/22 09/27/22 olanzapine 5 mg tablet 5 mg PO BEDTIME 09/27/22 09/27/22 prazosin 1 mg capsule 3 mg PO BEDTIME 09/27/22 09/27/22 quetiapine 100 mg tablet 100 mg PO BEDTIME 09/27/22 09/27/22 sertraline 50 mg tablet 50 mg PO DAILY 09/27/22 09/27/22 Allergies Allergy/AdvReac Type Severity Reaction Status Date / Time morphine AdvReac Vomiting Verified 09/29/21 15:27 Review of Systems 2 Review of Systems: Yes all other systems are reviewed and are negative PMF Past Medical History Medical History PTSD (post-traumatic stress disorder) Anxiety and depression Schizophrenia Polysubstance abuse Active substance abuse Asthma Family History Family History Mother Asthma Father Asthma Diabetes Paternal Grandfather Asthma Diabetes Social History Social History Alcohol intake: current Alcohol intake frequency: 3 or more drinks per day Alcohol type: hard liquor Patient Tobacco Use Status: Current everyday Tobacco user Tobacco use type: Cigarette Cigarette Packs Per Day: 0.5 Cigarettes Per Day: 10.0 Smoked in Last 30 Days: Yes Use of substances other than those prescribed or required for medical reasons: Yes Substance Use Type: Crack/Cocaine, Marijuana and Opiates Advance Directives: Yes Advance Directives on File: Yes Advance Directives Date on File: 03/11/22 Patient : No service: No Current occupational status: other Physical Exam ED Vital Signs: Vital Signs - 24 hr 02/27/23 00:10 02/27/23 02:27 02/27/23 04:00 Temperature 97.0 F 97.5 F 98.2 F Pulse Rate 104 H 74 72 Respiratory Rate 18 16 16 Blood Pressure 100/59 L 96/51 L 109/68 Pulse Oximetry 97 99 98 Oxygen Delivery Method Room Air Room Air Room Air 02/27/23 06:35 Temperature 97.5 F Pulse Rate 87 Respiratory Rate 14 Blood Pressure 111/60 Pulse Oximetry 98 Oxygen Delivery Method Room Air BMI result Body Mass Index 34.4 Appearance: Alert. Oriented X3. No acute distress. Eyes: PERRLA, No Nystagmus ENT: Pharynx normal. Oral Mucosa moist Neck: Normal inspection. Neck supple. CVS: Normal heart rate and rhythm. Pulses normal. Respiratory: No respiratory distress. Equal air entry bilateral, no wheezing/rales/rhonchi Abdomen: Soft and nontender. Bowel sounds are present, no mass palpable, no CVA tenderness Skin: Skin warm and dry. Normal skin color. Normal skin turgor. Extremities: No lower extremity edema. No calf tenderness Neuro: Oriented X 3. No motor deficit. No sensory deficit.No cerebellar signs , cranial nerves II-XII intact Medical Decision Making Medical Decision Making MDM Narrative: Patient with polysubstance abuse for detox placement stable vitals multiple reasons for her to use drugs specially she is homeless and financial reasons Lab Data MDM Lab Attestation statement: I reviewed the patient's lab results. 02/27/23 05:29 02/27/23 05:29 Labs: Lab Results 10/05/23 Range/Units 05:29 WBC 5.2 (4.8-10.8) X10*3/uL RBC 3.64 L (4.20-5.50) X10*6/uL Hgb 11.2 L (12.0-16.0) g/dl Hct 34.0 L (37.0-47.0) % MCV 93.4 (80.0-98.0) fL MCH 30.8 (27.0-33.0) pg MCHC 32.9 (31.0-35.0) g/dl RDW 13.2 (11.0-16.0) % Plt Count 226 (160-400) X10*3/uL MPV 10.3 (9.4-12.3) fL Immature Gran % (Auto) 0.2 (0.0-0.4) % Neut % (Auto) 45.1 (45-73) % Lymph % (Auto) 37.9 (20-40) % [place] % (Auto) 10.0 (2-11) % Eos % (Auto) 5.7 H (0-4) % Baso % (Auto) 1.1 (0-2) % Lymph # (Auto) 2.0 (1.2-4.9) X10*3/uL [place] # (Auto) 0.5 (0.1-1.2) X10*3/uL Eos # (Auto) 0.3 (0.0-0.4) X10*3/uL Baso # (Auto) 0.1 (0.0-0.2) X10*3/uL Abs Immat Gran (auto) 0.01 (0.00-0.03) X10*3/uL Absolute Neuts (auto) 2.4 (2.0-8.3) x10*3/uL Absolute Nucleated RBC 0.000 (0.0-0.012) X10*3/uL Nucleated RBC % (auto) 0.0 (0.0-0.2) /100WBC Sodium 139 (135-145) mmol/L Potassium 2.9 L D (3.3-5.1) mmol/L Chloride 108 (96-108) mmol/L Carbon Dioxide 19 L (22-29) mmol/L Anion Gap 15 (12-20) BUN 14 (9-16) mg/dL Creatinine 0.73 (0.5-1.4) mg/dL Estim Creat Clear Calc 104.5 Estimated GFR > 60 Random Glucose 105 (60-115) mg/dL Calcium 9.1 (8.4-10.2) mg/dL Total Bilirubin 0.2 (0.0-1.0) mg/dL AST 20 (5-31) U/L ALT 15 (0-31) U/L Alkaline Phosphatase 62 (39-117) U/L Total Protein 6.5 (6.5-8.0) g/dL Albumin 3.7 (3.5-5.0) g/dL Ethyl Alcohol < 10 mg/dL COVID-19 ([facility]) Negative (Negative) COVID-19 Clin Com See Note Discharge Plan Discharge Clinical Impression: Opioid use disorder, Cocaine abuse Patient Disposition: Still a Patient Prescriptions: No Action nicotine 21 mg/24 hr patch 24 hour 1 patch topical DAILY nicotine (polacrilex) 2 mg Lozenge 2 mg BUCCAL Q2-4H PRN (Reason: Nicotine Cravings) buspirone 5 mg tablet 5 mg PO BID acetaminophen 325 mg tablet 650 mg PO Q6H PRN (Reason: Pain, Moderate) nicotine 14 mg/24 hr patch 24 hour 1 patch topical DAILY prazosin 1 mg capsule 3 mg PO BEDTIME olanzapine 5 mg tablet 5 mg PO BEDTIME metronidazole 500 mg tablet 500 mg PO BID olanzapine 2.5 mg tablet 2.5 mg PO BEDTIME quetiapine 100 mg tablet 100 mg PO BEDTIME albuterol sulfate [Ventolin HFA] 90 mcg/actuation HFA aerosol inhaler 2 inh inhalation Q4H PRN (Reason: Shortness Of Breath) sertraline 50 mg tablet 50 mg PO DAILY
--- NOTE | 2023-02-27 04:07 | MHC.EDTECH ---
0400 rounding done ,vitals taken ,pt was change management into hospital gown ,Pt belonging locked up in decon ,pt had a sandwich and saltines crackers and drank 2 cans of chaz torito ,Pt has no apparent distress .
--- NOTE | 2023-02-27 05:32 | MHC.EDTECH ---
PATIENT BLOOD DRAWN ,AND COVID SWAB COLLECTED ALL SENT TO LAB ,PATIENT NOT ABLE TO GIVE URINE SAMPLE AT THIS TIME.
[2023-02-27 05:34] LABS: Basophils Absolute Auto 0.1 X10*3/uL (0.0-0.2); Basophils Percent Auto 1.1 % (0-2); Eosinophils Absolute Auto 0.3 X10*3/uL (0.0-0.4); Eosinophils Percent Auto 5.7 % (0-4); Hemoglobin 11.2 g/dl (12.0-16.0); Imm Gran Abs Auto 0.01 X10*3/uL (0.00-0.03); Imm Gran Pct Auto 0.2 % (0.0-0.4); Lymphocytes Percent Auto 37.9 % (20-40); MANUAL DIFF FLAG NO; Mean Corpuscular HGB Conc 32.9 g/dl (31.0-35.0); Mean Corpuscular Hemoglobin 30.8 pg (27.0-33.0); Mean Corpuscular Volume 93.4 fL (80.0-98.0); Mean Platelet Volume 10.3 fL (9.4-12.3); Monocytes Absolute Auto 0.5 X10*3/uL (0.1-1.2); Neutrophils Absolute Auto 2.4 x10*3/uL (2.0-8.3); Neutrophils Percent Auto 45.1 % (45-73); Platelet Count 226 X10*3/uL (160-400); Red Blood Count 3.64 X10*6/uL (4.20-5.50); Red Cell Distribution Width 13.2 % (11.0-16.0); White Blood Count 5.2 X10*3/uL (4.8-10.8)
[2023-02-27 05:46] LABS: COVID-19 Test Negative (Negative); IDNOW Serial# BCCEAD1C
[2023-02-27 05:51] LABS: Alanine Aminotransferase 15 U/L (0-31); Albumin Level 3.7 g/dL (3.5-5.0); Alkaline Phosphatase 62 U/L (39-117); Anion Gap 15 (12-20); Aspartate Amino Transferase 20 U/L (5-31); Bilirubin Total 0.2 mg/dL (0.0-1.0); Blood Urea Nitrogen 14 mg/dL (9-16); Calcium 9.1 mg/dL (8.4-10.2); Carbon Dioxide 19 mmol/L (22-29); Chloride 108 mmol/L (96-108); Creatinine Clr Calc Pharmacy 104.5; Estimated Glomerular Filt Rate > 60; Ethanol < 10 mg/dL; Glucose Random 105 mg/dL (60-115); Potassium 2.9 mmol/L (3.3-5.1); Sodium 139 mmol/L (135-145); Total Protein 6.5 g/dL (6.5-8.0)
--- NOTE | 2023-02-27 06:24 | PC.NURSE ---
pt denies SI HI. pt belongings in decon. pt calm and cooperative. pt denies hx of withdrawal seizures. pt made aware that last thing we need is a urine sample prior to being seen by recovery
--- NOTE | 2023-02-27 07:26 | PC.NURSE ---
Resumed care of patient, she is currently resting comfortably. PO intake available to patient, still awaiting urine at this time. Pt aware she needs to provide sample. All needs met at this time.
--- NOTE | 2023-02-27 09:50 | PC.NURSE ---
pt medicated per provider order. urine obtained and sent to lab. pt states that she has not taken her psychiatric medications in a few days. pt does not have a list of medications present with her at this time. states that she goes to [facility] in [place] - will verify with them.
--- NOTE | 2023-02-27 10:09 | PHA.MEDREC ---
Pharmacy Consult ? Medication Reconciliation Pharmacy has completed the medication reconciliation. Spoke to patient. They stated that they have stopped the sofosbuvir/velpatasvir due to interactions with tegretol. They stopped prazosin due to decrease blood pressure and they are no longer on lithium.
--- NOTE | 2023-02-27 10:59 | MHC.RECOVRN ---
Met with pt in ED19H to discuss desire for ATS. Pt reports using 1-2 bags heroin/fentanyl daily, IN; $5-10 cocaine daily, IN; 2-3 nips daily x 3-4 weeks. Prior to recurrence, pt was in a program in [place] x 4 months. Pt is open to any ATS facility. T/w will conduct bedsearch.
--- NOTE | 2023-02-27 11:03 | PC.NURSE ---
vss and up to date. pt medicated per provider order. pt awaiting tegretol administration d/t medication not being in pyxis - will administer when able. updated CIWA = 2. provider not notified at this time. pt resting comfortably in stretched in no apparent distress.
--- NOTE | 2023-02-27 11:35 | PC.NURSE ---
pt currently resting comfortably in the stretcher w/ eyes closed. pt in no apparent distress. respirations even and unlabored.
--- NOTE | 2023-02-27 13:24 | MHC.RECOVRN ---
Pts referral currently being reviewed for [facility].
--- NOTE | 2023-02-27 13:49 | PC.NURSE ---
pharmacy called again to have medication delivered. states they will bring medication down shortly. will administer medication when able.
--- NOTE | 2023-02-27 14:54 | MHC.RECOVRN ---
Pt accepted to [facility] pending phone screen.
--- NOTE | 2023-02-27 15:51 | PC.NURSE ---
medication administered per provider order. pt resting comfortably in stretcher in no apparent distress.
--- NOTE | 2023-02-27 16:07 | MHC.RECOVRN ---
Pt accepted to [facility] for 9PM admission.
--- NOTE | 2023-02-27 16:10 | PC.NURSE ---
per recovery advocate, pt accepted to detox facility and will be leaving around 2099. pt aware of plan of care at at this time.
--- NOTE | 2023-02-27 19:03 | PC.NURSE ---
pt resting on stretcher in no apparent distress. vs up to date. pt hypotensive carley - documented in vs section. pt states that she becomes hypotensive every time she takes her prescribed medications. pt currently asymptomatic - denies d/n/v at this time.
--- NOTE | 2023-02-27 20:35 | MHC.RECOVSUP ---
? Reason for consult: POLY SHARATH o? Current location:?ED19H o? Identified substance use concern:? -? Seeking ATS (detox) -? Support ?? Intervention: o? ATS bed search started/completed/in process o? Community resources provided o? Harm reduction discussion ? Plan:Transport to [facility] ? Additional information:[facility] assisted in closing this pt's visit today by support her with a LYFT ride to [facility] in [facility]. provided this pt with contact information to obtain a [facility] once pt completes detox. Provider informed.
== END 2023-02-27 20:29 | disposition home or self-care (01) ==
PROVIDERS: Internal Medicine; Emergency Provider Emergency Medicine
DX: F14.10 Cocaine abuse, uncomplicated (principal); F11.90 Opioid use, unspecified, uncomplicated; E87.6 Hypokalemia; Z11.52 Encounter for screening for COVID-19; F19.10 Other psychoactive substance abuse, uncomplicated; F43.10 Post-traumatic stress disorder, unspecified; F41.9 Anxiety disorder, unspecified; F20.9 Schizophrenia, unspecified; F17.210 Nicotine dependence, cigarettes, uncomplicated; Z79.899 Other long term (current) drug therapy
CPT/HCPCS: 80053; 80307; 81001; 85025; 87086; 87088; 87186; 87635; 99284

== ENCOUNTER 2023-03-16 01:52 | Emergency (ER) | payer OTHER, SELFPAY ==
[2023-03-16 02:08] VITALS: BP 109/57; PULSE 85; RESP 18; TEMP 36.5; O2SAT 97; BMI 29.5
[2023-03-16 03:05] LABS: COVID-19 Test Negative (Negative); IDNOW Serial# 08D9AD1C; IDNOW Serial# BCCEAD1C; Influenza A Negative (Negative); Influenza B2 Negative (Negative)
[2023-03-16 06:43] VITALS: BP 115/78; PULSE 67; RESP 17; TEMP 36.4; O2SAT 99
--- NOTE | 2023-03-16 07:48 | ED.PSYCH ---
HPI - Psych General Chief Complaint: ETOH/Substance Use Stated Complaint: Requesting Detox Time Seen by Provider: 03/16/23 07:34 Source: patient Mode of arrival: ambulatory Limitations: no limitations History of Present Illness HPI Narrative: 32 yo female with PMH of ETOH and heroin abuse - last used yesterday she wants detox. She has no withdrawal sx she is not reporting SI/HI. She is homeless and wants to get off the street. She is not on MAT therapy. MD complaint: feels depressed, substance abuse and alcohol abuse Onset (ago): month(s) Duration: changing over time History of same: Yes Relieving factors: none Exacerbating factors: alcohol and drug use Context: recent alcohol abuse and recent drug abuse Associated psychiatric symptoms: depression Associated symptoms: denies other symptoms Treatments prior to arrival: none Related Data Home Medications Medication Instructions Recorded Confirmed acetaminophen 325 mg tablet 650 mg PO Q6H PRN Pain, Moderate 09/27/22 02/27/23 albuterol sulfate 90 mcg/actuation 2 inh inhalation Q4H PRN Shortness 09/27/22 02/27/23 aerosol inhaler (Ventolin HFA) Of Breath aripiprazole 5 mg tablet 5 mg PO BID 02/27/23 02/27/23 buprenorphine 8 mg-naloxone 2 mg 10 mg sublingual BID 02/27/23 02/27/23 sublingual film (Suboxone) carbamazepine 200 mg tablet 200 mg PO BID 02/27/23 02/27/23 clonidine HCl 0.1 mg tablet 0.1 mg PO TID 02/27/23 02/27/23 dicyclomine 10 mg capsule 10 mg PO BID PRN upset stomach 02/27/23 02/27/23 gabapentin 300 mg capsule 300 mg PO TID 02/27/23 02/27/23 hydroxyzine HCl 50 mg tablet 100 mg PO BID 02/27/23 02/27/23 ibuprofen 800 mg tablet 800 mg PO TID 02/27/23 02/27/23 nicotine (polacrilex) 4 mg gum 4 mg PO Q2H PRN cravings 02/27/23 02/27/23 nicotine 21 mg/24 hr daily 1 patch topical DAILY 02/27/23 02/27/23 transdermal patch quetiapine 25 mg tablet 25 mg PO TID 02/27/23 02/27/23 topiramate 100 mg tablet 100 mg PO BID 02/27/23 02/27/23 zolpidem 5 mg tablet 5 mg PO BEDTIME PRN Insomnia 02/27/23 02/27/23 Previous Rx's Medication Instructions Recorded nitrofurantoin 100 mg PO BID 5 days #10 caps 03/03/23 monohydrate/macrocrystals 100 mg capsule (Macrobid) Allergies Allergy/AdvReac Type Severity Reaction Status Date / Time morphine AdvReac Vomiting Verified 03/16/23 02:11 Review of Systems Review of Systems: Constitutional : No Fever, No Chills ENT/Mouth : No Ear Pain, No Nasal Congestion, No sore throat Eyes: No Eye Pain, No Swelling, No Redness Cardiovascular : No Chest Pain, No SOB Respiratory : No Cough, No Sputum, No Dyspnea Gastrointestinal : No Nausea, No Vomiting, No Diarrhea, No Hematochezia, No Melena Genitourinary : No Dysuria, No Urinary Frequency, No Hematuria Musculoskeletal : No Myalgias Skin : No Skin Lesions, No rash Neuro : No Weakness, No Numbness, No Paresthesias, No Dizziness, No Headache Psych : positive Anxiety, positive Depression, no SI/HI All other systems reviewed and are negative [facility] Past Medical History Attestation statement: The following information was validated with the patient. Medical History PTSD (post-traumatic stress disorder) Anxiety and depression Schizophrenia Polysubstance abuse Active substance abuse Asthma Family History Family History Mother Asthma Father Asthma Diabetes Paternal Grandfather Asthma Diabetes Social History Social History Alcohol intake: current Alcohol intake frequency: 3 or more drinks per day Alcohol type: hard liquor Patient Tobacco Use Status: Current everyday Tobacco user Tobacco use type: Cigarette Cigarette Packs Per Day: 0.5 Cigarettes Per Day: 10.0 Substance Use Type: Crack/Cocaine, Marijuana and Opiates Advance Directives: Yes Advance Directives on File: Yes Advance Directives Date on File: 03/11/22 service: No Current occupational status: other Physical Exam Vital Signs: Vital Signs: Last Vital Signs Temp 97.5 F 03/16/23 06:43 Pulse 67 03/16/23 06:43 Resp 17 03/16/23 06:43 BP 115/78 03/16/23 06:43 Pulse Ox 99 03/16/23 06:43 O2 Del Method Room Air 03/16/23 06:43 BMI result Body Mass Index 29.5 Appearance: Alert. Oriented X3. No acute distress. came in with belongings and suitcases Eyes: Pupils equal, round and reactive to light. ENT: Pharynx normal. Neck: Normal inspection. Neck supple. CVS: Normal heart rate and rhythm. Pulses normal. Respiratory: No respiratory distress. Breath sounds normal. Abdomen: Soft and nontender. Skin: Skin warm and dry. Normal skin color. Normal skin turgor. Extremities: No lower extremity edema. Neuro: Oriented X 3. No motor deficit. No sensory deficit. Medical Decision Making Medical Decision Making [facility] Narrative: 32 yo female with PMH of ETOH and heroin abuse at this time she is wanting a detox bed her VS are stable she is not in withdrawal at this time - she has no reported SI/HI. She has no medical complaints I did discuss with CARE team provider and unfortunately we do not have any detox beds. I have sent the patient home with nasal narcan, detox list, comprehensive care clinic info and retirement list. She is upset but unfortunately I cannot keep her here for detox bed search. Differential Diagnosis Differential Diagnoses: The differential diagnosis associated with the presentation includes substance abuse. Consult Healthcare Provider Management of the patient was discussed with: Cardiology Technologist (did ask CARE team about detox bed search - none available today) Lab Data [facility] Lab Attestation statement: I reviewed the patient's lab results. Labs: Lab Results 03/16/23 Range/Units 02:38 COVID-19 (DONNA) Negative (Negative) COVID-19 Clin Com See Note Influenza Type A (KAROLINE) Negative (Negative) Influenza Type B (KAROLINE) Negative (Negative) Influenza A & B Note See Note External Record Review External record reviewed: Inpatient record Social Determinants Patient?s care significantly limited by Social Determinants of Health including: Inadequate housing, Low income, Alcoholism and drug addiction in family, Problems related to primary support group and Unemployment Discharge Plan Discharge Clinical Impression: Polysubstance abuse Patient Disposition: Home, Self-Care Instructions: Polysubstance Abuse (ED) Additional Instructions: our comprehensive care center will take walk ins M-F 10 to 12 please go. you can also go to [facility]. please carry narcan with you at all times. continue to search for detox. Prescriptions: No Action acetaminophen 325 mg tablet 650 mg PO Q6H PRN (Reason: Pain, Moderate) albuterol sulfate [Ventolin HFA] 90 mcg/actuation HFA aerosol inhaler 2 inh inhalation Q4H PRN (Reason: Shortness Of Breath) quetiapine 25 mg tablet 25 mg PO TID clonidine HCl 0.1 mg tablet 0.1 mg PO TID ibuprofen 800 mg tablet 800 mg PO TID hydroxyzine HCl 50 mg tablet 100 mg PO BID carbamazepine 200 mg tablet 200 mg PO BID gabapentin 300 mg capsule 300 mg PO TID zolpidem 5 mg tablet 5 mg PO BEDTIME PRN (Reason: Insomnia) topiramate 100 mg tablet 100 mg PO BID dicyclomine 10 mg capsule 10 mg PO BID PRN (Reason: upset stomach) aripiprazole 5 mg tablet 5 mg PO BID buprenorphine-naloxone [Suboxone] 8-2 mg film 10 mg sublingual BID nicotine (polacrilex) 4 mg gum 4 mg PO Q2H PRN (Reason: cravings) nicotine 21 mg/24 hr patch 24 hour 1 patch topical DAILY nitrofurantoin monohyd/m-cryst [Macrobid] 100 mg capsule 100 mg PO BID 5 Days Qty: 10 0RF Rx Instructions: must administer with a meal/food
== END 2023-03-16 08:08 | disposition home or self-care (01) ==
PROVIDERS: Emergency Provider Emergency Medicine
DX: F33.1 Major depressive disorder, recurrent, moderate (principal); F10.10 Alcohol abuse, uncomplicated; Y90.9 Presence of alcohol in blood, level not specified; F14.10 Cocaine abuse, uncomplicated; F11.10 Opioid abuse, uncomplicated; Z11.52 Encounter for screening for COVID-19; Z20.822 Contact with and (suspected) exposure to COVID-19; Z71.51 Drug abuse counseling and surveillance of drug abuser
CPT/HCPCS: 87502; 87635; 99282; 99283

== ENCOUNTER 2023-09-28 14:53 | Emergency (ER) | payer OTHER, SELFPAY ==
[2023-09-28 15:03] VITALS: BP 110/70; PULSE 90; O2SAT 99
[2023-09-28 15:18] VITALS: BP 118/58; PULSE 84; RESP 16; TEMP 36.3; O2SAT 100; BMI 43.4
[2023-09-28 15:21] VITALS: BP 118/58; PULSE 84; RESP 18; TEMP 36.3; O2SAT 100
--- NOTE | 2023-09-28 15:28 | PC.NURSE ---
Pt presents to ED via EMS, coming from [facility]. Pt reports SI X4 days, with no specific plan. Pt reports psych hx of bipolar and schizoaffective, has not taken any meds in 3 weeks due to not being able to access them (left them at snf house). Pt denies HI, calm and cooperative. Reports used alcohol and crack yesterday, does not drink daily. Pt is alert and oriented, breathing even and unlabored, skin WNL. VSS. Pt changed into safety attire, 1:1 sitter. BELONGINGS IN LOCKER 9.
--- NOTE | 2023-09-28 17:05 | ED_ITS ---
HPI - General Adult General Chief complaint: Psychiatric Symptoms Stated complaint: SI W/NO PLAN PER EMS Time Seen by Provider: 09/28/23 16:17 Source: patient Mode of arrival: ambulatory Limitations: no limitations History of Present Illness HPI narrative: 32-year-old female history of bipolar schizoaffective disorder presents to ED for 4 days of suicidal ideation. Patient admits to not taking her psych meds for 3 weeks and not seen a therapist. Patient states last use drugs and did alcohol yesterday. Patient denies any auditory/visual hallucinations. Patient states plan will be to kill herself by using drugs. Related Data Home Medications ?Medication ?Instructions ?Recorded ?Confirmed acetaminophen 325 mg tablet 650 mg PO Q6H PRN Pain, Moderate 09/27/22 09/28/23 gabapentin 300 mg capsule 600 mg PO TID 02/27/23 09/28/23 ibuprofen 800 mg tablet 800 mg PO TID 02/27/23 09/28/23 nicotine (polacrilex) 4 mg gum 4 mg PO Q2H PRN cravings 02/27/23 09/28/23 quetiapine 25 mg tablet 25 mg PO TID 02/27/23 09/28/23 topiramate 100 mg tablet 50 mg PO BID 02/27/23 09/28/23 baclofen 10 mg tablet 10 mg PO DAILY 09/28/23 09/28/23 buspirone 15 mg tablet 15 mg PO TID 09/28/23 09/28/23 doxazosin 1 mg tablet 3 mg PO BEDTIME 09/28/23 09/28/23 hydroxyzine HCl 50 mg tablet 50 mg PO TID PRN Anxiety 09/28/23 09/28/23 mirtazapine 15 mg tablet 15 mg PO BEDTIME 09/28/23 09/28/23 omeprazole 40 mg capsule,delayed 40 mg PO DAILY 09/28/23 09/28/23 release ondansetron HCl 4 mg tablet 4 mg PO Q8H PRN Nausea 09/28/23 09/28/23 quetiapine 300 mg tablet 300 mg PO BEDTIME 09/28/23 09/28/23 sertraline 100 mg tablet 100 mg PO DAILY 09/28/23 09/28/23 methadone 10 mg/mL oral 120 mg PO DAILY 09/29/23 09/29/23 concentrate (Methadone Intensol) Allergies Allergy/AdvReac Type Severity Reaction Status Date / Time morphine AdvReac Vomiting Verified 09/28/23 15:20 Review of Systems 2 Review of Systems: Suicidal ideation Yes all other systems are reviewed and are negative [facility] Past Medical History Medical History PTSD (post-traumatic stress disorder) Anxiety and depression Schizophrenia Polysubstance abuse Active substance abuse Asthma Family History Family History Mother Asthma Father Asthma Diabetes Paternal Grandfather Asthma Diabetes Social History Social History Alcohol intake: current Alcohol intake frequency: 3 or more drinks per day Alcohol type: hard liquor Patient Tobacco Use Status: Current everyday Tobacco user Tobacco use type: Cigarette Cigarette Packs Per Day: 0.5 Cigarettes Per Day: 10.0 Smoked in Last 30 Days: Yes Use of substances other than those prescribed or required for medical reasons: Yes Substance Use Type: Crack/Cocaine Substance Use Frequency: Daily Advance Directives: Yes Advance Directives on File: Yes Advance Directives Date on File: 03/11/22 Do you have a plan to hurt others: No Plan service: No Current occupational status: other Physical Exam ED Vital Signs: Vital Signs - 24 hr 09/29/23 04:05 09/29/23 09:16 Temperature 98.1 F 98.1 F Pulse Rate 84 60 Respiratory Rate 15 20 Blood Pressure 102/64 102/44 L Pulse Oximetry 97 100 Oxygen Delivery Method Room Air Room Air BMI result Body Mass Index 43.4 Const General: cooperative, healthy appearing, comfortable, no acute distress, well developed, alert, awake and Physically active Orientation/consciousness: oriented to person, oriented to place, oriented to time and patient oriented x3 HENMT Head: Yes normal to inspection, Yes No palpable skull fracture present, Yes normocephalic, Yes atraumatic and No abrasion Eyes General: appearance normal, both eyes and all related structures Neck Neck: Yes normal visual inspection, Yes full ROM, Yes no lymphadenopathy, Yes no meningeal signs, Yes trachea midline, Yes supple, No anterior neck swelling and No tender Chest Chest palpation & inspection: normal inspection of the chest and normal palpation of entire chest wall Resp Effort & Inspection: normal respiratory effort and able to speak in complete sentences Auscultation: clear to auscultation bilaterally Cardio Jugular venous distension: no JVD Heart sounds: S1 normal heart sound present and S2 normal heart sound present GI Inspection: Yes normal to inspection Palpation (GI): Soft to palpation, not firm, nontender, no guarding and not rigid General: No CVA tenderness and Yes no CVA tenderness Back/Spine/Pelvis Back: no CVA tenderness, No CVA tenderness and No back tenderness Skin General skin exam: no rashes or lesions noted, elasticity normal and turgor normal Neuro General: oriented to person, oriented to place, oriented to time, patient oriented x3, gait normal, tone normal, moves all extremities, Normal light touch and pain sensation, no meningeal signs, no focal motor deficits, CN's II-XI intact bilaterally and normal sensation to monofilament Extrem General: Yes normal to inspection, Yes full ROM and Yes capillary refill normal Psych Appearance: grossly normal, well kempt and not disheveled Medical Decision Making Medical Decision Making MDM Narrative: 32-year-old female presents to ED for suicidal ideation. Labs ordered. Care team consulting placed. Patient is sleeping comfortably in bed Differential Diagnosis Differential Diagnoses: The differential diagnosis associated with the presentation includes (Depression, anxiety, suicidal) Admission/Observation Consideration of admission/observation: Escalation of care including admission/observation considered Consult Healthcare Provider Management of the patient was discussed with: [place] Supervisor (Care team) Lab Data [facility] Lab Attestation statement: I reviewed the patient's lab results. 09/28/23 17:07 09/28/23 17:07 Labs: Lab Results 09/28/23 09/28/23 Range/Units 17:07 19:08 WBC 7.6 (4.8-10.8) X10*3/uL RBC 3.70 L (4.20-5.50) X10*6/uL Hgb 11.3 L (12.0-16.0) g/dl Hct 32.1 L (37.0-47.0) % MCV 86.8 (80.0-98.0) fL MCH 30.5 (27.0-33.0) pg MCHC 35.2 H (31.0-35.0) g/dl RDW 13.2 (11.0-16.0) % Plt Count 243 (160-400) X10*3/uL MPV 10.5 (9.4-12.3) fL Immature Gran % (Auto) 0.5 H (0.0-0.4) % Neut % (Auto) 61.3 (45-73) % Lymph % (Auto) 28.0 (20-40) % Price % (Auto) 6.7 (2-11) % Eos % (Auto) 2.6 (0-4) % Baso % (Auto) 0.9 (0-2) % Lymph # (Auto) 2.1 (1.2-4.9) X10*3/uL Price # (Auto) 0.5 (0.1-1.2) X10*3/uL Eos # (Auto) 0.2 (0.0-0.4) X10*3/uL Baso # (Auto) 0.1 (0.0-0.2) X10*3/uL Abs Immat Gran (auto) 0.04 H (0.00-0.03) X10*3/uL Absolute Neuts (auto) 4.7 (2.0-8.3) x10*3/uL Absolute Nucleated RBC 0.000 (0.0-0.012) X10*3/uL Nucleated RBC % (auto) 0.0 (0.0-0.2) /100WBC Smear Tech's Comments VERIFIED Sodium 137 (135-145) mmol/L Potassium 3.5 (3.3-5.1) mmol/L Chloride 105 (96-108) mmol/L Carbon Dioxide 20 L (22-29) mmol/L Anion Gap 16 (12-20) BUN 10 (9-16) mg/dL Creatinine 0.69 (0.5-1.4) mg/dL Estim Creat Clear Calc 126.0 Estimated GFR > 60 Random Glucose 107 (60-115) mg/dL Calcium 9.6 (8.4-10.2) mg/dL Total Bilirubin 0.5 (0.0-1.0) mg/dL AST 86 H (5-31) U/L ALT 146 H (0-31) U/L Alkaline Phosphatase 86 (39-117) U/L Total Protein 7.7 (6.5-8.0) g/dL Albumin 4.2 (3.5-5.0) g/dL Urine Color Yellow Urine Appearance Cloudy Urine pH 6.0 (5.0-9.0) Ur Specific [place] 1.020 (1.005-1.025) Urine Protein Negative (Neg-Trace) mg/dL Urine Glucose (UA) Negative (Negative) mg/dL Urine Ketones Negative (Negative) mg/dL Urine Blood Negative (Negative) Urine Nitrite Negative (Negative) Ur Leukocyte Esterase Large (3+) H (Negative) Urine RBC 0-2 (0-2) /HPF Urine WBC >50 H (0-5) /HPF Ur Squamous Epith Cells 3-5 (0-2) /HPF Urine Bacteria Trace (None Seen) Hyaline Casts 0-2 (0-2) /LPF Urine Test NEGATIVE (NEGATIVE) Urine Opiates Screen Not Detected (Not Detect) Ur Buprenorphine Scrn Not Detected (Not Detect) ng/mL Ur Oxycodone Screen Not Detected (Not Detect) ng/mL Urine Methadone Screen Positive H (Not Detect) ng/mL Urine Fentanyl Screen Not Detected (Not Detect) Ur Barbiturates Screen Not Detected (Not Detect) Ur Phencyclidine Scrn Not Detected (Not Detect) Ur Amphetamines Screen Not Detected (Not Detect) U Benzodiazepines Scrn Not Detected (Not Detect) Urine Cocaine Screen POSITIVE H (Not Detect) U Marijuana (THC) Screen POSITIVE H (Not Detect) Ethyl Alcohol < 10 mg/dL Influenza Type A (PCR) NEGATIVE (Negative) Influenza Type B (PCR) NEGATIVE (Negative) RSV RNA Qual (PCR) NEGATIVE (Negative) SARS-CoV-2 RNA (RT-PCR) NEGATIVE (Negative) Independent Historian Clinical information obtained from an independent historian. History obtained from or confirmed by: Other (Patient) External Record Review External record reviewed: Other (Prior visits) Discharge Plan Discharge Clinical Impression: Depression Patient Disposition: Still a Patient Instructions: Depression (ED) Prescriptions: No Action acetaminophen 325 mg tablet 650 mg PO Q6H PRN (Reason: Pain, Moderate) quetiapine 25 mg tablet 25 mg PO TID ibuprofen 800 mg tablet 800 mg PO TID gabapentin 300 mg capsule 600 mg PO TID topiramate 100 mg tablet 50 mg PO BID nicotine (polacrilex) 4 mg gum 4 mg PO Q2H PRN (Reason: cravings) quetiapine 300 mg tablet 300 mg PO BEDTIME doxazosin 1 mg tablet 3 mg PO BEDTIME ondansetron HCl 4 mg tablet 4 mg PO Q8H PRN (Reason: Nausea) sertraline 100 mg tablet 100 mg PO DAILY hydroxyzine HCl 50 mg tablet 50 mg PO TID PRN (Reason: Anxiety) omeprazole 40 mg capsule,delayed release(DR/EC) 40 mg PO DAILY baclofen 10 mg tablet 10 mg PO DAILY mirtazapine 15 mg tablet 15 mg PO BEDTIME buspirone 15 mg tablet 15 mg PO TID methadone [Methadone Intensol] 10 mg/mL Concentrate 120 mg PO DAILY Interventions: [place]-Suicide Risk Severity Scale Last Done: 09/28/23 15:21 Print Language: Bolivian
[2023-09-28 17:16] LABS: Basophils Absolute Auto 0.1 X10*3/uL (0.0-0.2); Basophils Percent Auto 0.9 % (0-2); Hemoglobin 11.3 g/dl (12.0-16.0); PLT CLUMP 1; Red Cell Distribution Width 13.2 % (11.0-16.0); SCAN SMEAR FLAG 1
[2023-09-28 17:17] LABS: Eosinophils Absolute Auto 0.2 X10*3/uL (0.0-0.4); Eosinophils Percent Auto 2.6 % (0-4); Hematocrit 32.1 % (37.0-47.0); Imm Gran Abs Auto 0.04 X10*3/uL (0.00-0.03); Imm Gran Pct Auto 0.5 % (0.0-0.4); Lymphocytes Absolute Auto 2.1 X10*3/uL (1.2-4.9); MANUAL DIFF FLAG SCAN; Mean Corpuscular HGB Conc 35.2 g/dl (31.0-35.0); Mean Corpuscular Hemoglobin 30.5 pg (27.0-33.0); Mean Corpuscular Volume 86.8 fL (80.0-98.0); Mean Platelet Volume 10.5 fL (9.4-12.3); Monocytes Absolute Auto 0.5 X10*3/uL (0.1-1.2); Monocytes Percent Auto 6.7 % (2-11); Neutrophils Absolute Auto 4.7 x10*3/uL (2.0-8.3); Neutrophils Percent Auto 61.3 % (45-73)
[2023-09-28 17:21] LABS: White Blood Count 7.6 X10*3/uL (4.8-10.8)
[2023-09-28 17:22] LABS: Platelet Count 243 X10*3/uL (160-400)
[2023-09-28 17:32] LABS: Alanine Aminotransferase 146 U/L (0-31); Albumin Level 4.2 g/dL (3.5-5.0); Alkaline Phosphatase 86 U/L (39-117); Anion Gap 16 (12-20); Aspartate Amino Transferase 86 U/L (5-31); Bilirubin Total 0.5 mg/dL (0.0-1.0); Blood Urea Nitrogen 10 mg/dL (9-16); Calcium 9.6 mg/dL (8.4-10.2); Carbon Dioxide 20 mmol/L (22-29); Chloride 105 mmol/L (96-108); Estimated Glomerular Filt Rate > 60; Ethanol < 10 mg/dL; Glucose Random 107 mg/dL (60-115); Potassium 3.5 mmol/L (3.3-5.1); Sodium 137 mmol/L (135-145); Total Protein 7.7 g/dL (6.5-8.0)
[2023-09-28 17:36] LABS: SLIDE REVIEW VERIFIED
[2023-09-28 17:49] LABS: Influenza A PCR NEGATIVE (Negative); Influenza B PCR NEGATIVE (Negative); Resp Syncy Virus RNA Qual PCR NEGATIVE (Negative); SARS COV2 PCR INHOUSE NEGATIVE (Negative)
[2023-09-28 19:17] LABS: Appearance Urine Cloudy; Color Urine Yellow; Glucose Urine UA Negative (Negative); Leukocyte Esterase Urine Large (3+) (Negative); Nitrite Urine Negative (Negative); UMIC TRIGGER UACC YES; Urine Blood Negative (Negative); Urine Ketones Negative (Negative); Urine Protein Negative (Neg-Trace)
[2023-09-28 19:18] LABS: UPreg QC Valid YES; Urine Pregnancy NEGATIVE (NEGATIVE)
[2023-09-28 19:20] LABS: Bacteria Urine Trace (None Seen); Hyaline Casts Urine 0-2 /LPF (0-2); RBC Urine 0-2 /HPF (0-2); UACC Culture Trigger YES; WBC Urine >50 /HPF (0-5)
--- NOTE | 2023-09-28 19:24 | PC.NURSE ---
patient appears to remain at rest on couch in rear communal area at present (where client is assigned) patient appears in no distress presently.
[2023-09-28 19:29] LABS: Amphetamine Screen Urine Not Detected (Not Detect); Barbiturates, Urine Not Detected (Not Detect); Benzodiazepines Screen Urine Not Detected (Not Detect); Buprenorphine Scr Not Detected (Not Detect); Cannabinoid Screen Urine POSITIVE (Not Detect); Cocaine Screen Urine POSITIVE (Not Detect); Fentanyl, urine Not Detected (Not Detect); Methadone Screen, Urine Positive (Not Detect); Opiate Screen Urine Not Detected (Not Detect); Oxycodone Screen Urine Not Detected (Not Detect); Phencyclidine Screen Urine Not Detected (Not Detect)
[2023-09-29 04:05] VITALS: BP 102/64; PULSE 84; RESP 15; TEMP 36.7; O2SAT 97
--- NOTE | 2023-09-29 07:34 | PC.NURSE ---
Assumed care of patient at 0645, patient appears to be sleeping on couch in BH 8, no apparent distress noted at this time. Patient is pending CARE team evaluation at this time
[2023-09-29 09:16] VITALS: BP 102/44; PULSE 60; RESP 20; TEMP 36.7; O2SAT 100
--- NOTE | 2023-09-29 12:02 | PC.NURSE ---
Addendum entered by Trisha Wesley [facility] 09/29/23 13:09: pharmacy has recieved methadone verification. Patient receives 120 mg from [facility], last given 09/26/23 @0806 Original Note: Re: methadone This Rn verified methadone dose with [facility] clinic. Verification form sent to pharmacy
--- NOTE | 2023-09-29 14:12 | MHC.CARE ---
Dual BedSearch has been exhausted for today. Declined by [facility]- unable to taper methadone. Declined by June- not enough psych presentation. No open beds at [facility] and [facility]. Search is exhausted for today and will bed search again tomorrow.
[2023-09-29 20:21] VITALS: BP 116/68; PULSE 88; RESP 16; TEMP 36.4; O2SAT 97
[2023-09-30 00:24] VITALS: BP 109/42; PULSE 60; RESP 16; TEMP 36.6; O2SAT 97
--- NOTE | 2023-09-30 07:15 | PC.NURSE ---
Assumed care of patient at 0645. Patient is observed sleeping in there bed at this time. No signs of distress, breathing is even and unlabored at this time. Will continue plan of care.
--- NOTE | 2023-09-30 09:35 | MHC.CARE ---
Sachi @[facility] called to accept this pt for today 09/30/23 ETA @2:30pm. The accepting provider is Dr. Hany Stoyr and the address is [address] [place] [address] , [place] [address]. The CARE team was notified of placement to complete the section 12a for transport. Pod RN Kameron was notified of placement and ETA for transport.
[2023-09-30 11:18] VITALS: BP 129/69; PULSE 65; RESP 14; TEMP 36.5; O2SAT 97
--- NOTE | 2023-09-30 11:55 | PC.NURSE ---
Nurse to Nurse report given to Jacques GOODRICH at [facility] at 1150. Expected arrival is 1430.
[2023-09-30 14:17] VITALS: BP 129/69; PULSE 65; RESP 14; TEMP 36.5; O2SAT 97
== END 2023-09-30 14:18 | disposition still patient (30) ==
PROVIDERS: Physician Assistant; Emergency Provider Emergency Medicine Emergency Medical Services
DX: F32.A Depression, unspecified (principal); F25.0 Schizoaffective disorder, bipolar type; Z91.148 Patient's other noncompliance with medication regimen for other reason
CPT/HCPCS: 0241U; 80053; 80307; 81001; 81025; 85025; 87086; 99285; S9485